=== PATIENT | female | born 1965 | race Caucasian/White ===

== ENCOUNTER 2021-02-12 10:55 | Observation (INO) | payer MEDICARE ==
--- NOTE | 2021-02-12 11:08 | ERPHSYRPT ---
- History of Present Illness Time Seen by Provider: 02/12/21 11:03 Source: patient, family Exam Limitations: no limitations Physician History: This is a 55-year-old white female who has been smoking cigarettes for 40 years and presents with shortness of breath that has been worsening over the last 2 weeks. Today was at its worst. Patient states that she stopped smoking for 5 days. Patient does have a touch of asthma per her report. Patient has had wheezing and a mild cough. She denies chest pain. She does not use home oxygen therapy Severity of Dyspnea-Max: moderate Severity of Dyspnea-Current: moderate Possible Cause: occasional episodes Modifying Factors: Improves With: activity, coughing Associated Symptoms: cough, wheezing Allergies/Adverse Reactions: No Known Drug Allergies Allergy (Unverified 02/12/21 11:09) Home Medications: Albuterol Sulfate [Proair Hfa] 1 ea TID 02/12/21 [History] lisinopriL [Lisinopril] 20 mg DAILY 02/12/21 [History] Travel Risk - International Travel Have you traveled outside of the country in past 3 weeks: No - Coronavirus Screening Are you exhibiting any of the following symptoms?: No Close contact with a COVID-19 positive Pt in past 14-21 Days: No - Review of Systems Constitutional: No Symptoms Eyes: No Symptoms Ears, Nose, & Throat: No Symptoms Respiratory: No Symptoms Cardiac: No Symptoms Abdominal/Gastrointestinal: No Symptoms Genitourinary Symptoms: No Symptoms Musculoskeletal: No Symptoms Skin: No Symptoms Neurological: No Symptoms Psychological: No Symptoms Endocrine: No Symptoms Hematologic/Lymphatic: No Symptoms Immunological/Allergic: No Symptoms All Other Systems: Reviewed and Negative - Past Medical History Pertinent Past Medical History: Yes - Past Surgical History Past Surgical History: Yes - Nursing Vital Signs Nursing Vital Signs: Initial Vital Signs Temperature 97.2 F 02/12/21 10:57 Pulse Rate 123 H 02/12/21 10:57 Respiratory Rate 26 H 02/12/21 10:57 Blood Pressure 147/92 02/12/21 10:57 O2 Sat by Pulse Oximetry 89 L 02/12/21 10:57 Pain Scale Pain Intensity 3 - Physical Exam General Appearance: moderate distress, alert, anxiety, thin Eye Exam: PERRL/EOMI, eyes nml inspection Ears, Nose, Throat Exam: hearing grossly normal, normal ENT inspection, normal pharynx Neck Exam: normal inspection, non-tender, supple, full range of motion Respiratory Exam: respiratory distress, airway intact, wheezing, No chest tenderness Cardiovascular/Chest Exam: tachycardia Abdominal/Gastrointestinal Exam: soft, normal bowel sounds, No tenderness Rectal Exam: not done Extremity Exam: non-tender, normal range of motion, normal inspection, normal capillary refill, no calf tenderness, no pedal edema, pelvis stable Neurologic Exam: alert, oriented x 3, cooperative, fuel manager II-XII nml as tested, normal mood/affect, nml cerebellar function, nml station & gait, sensation nml Skin Exam: normal color, warm, dry Lymphatic Exam: No adenopathy SpO2 Interpretation: borderline oxygenation O2 Delivery: Room Air - Course Nursing assessment & vital signs reviewed: Yes EKG Interpreted by Me: RATE (120), Sinus Tach, NORMAL AXIS, LAFB, NORMAL INTERVALS, NORMAL QRS, NORMAL ST-T, Other (No acute ischemic changes on today's EKG. No comparison EKG available) Ordered Tests: Active Orders 24 hr Category Date Time Status EKG-ER Only STAT Care 02/12/21 11:11 Active IV Insertion STAT Care 02/12/21 11:11 Active Pulse Oximetry (ED) STAT Care 02/12/21 11:11 Active CHEST 1 VIEW (PORTABLE) Stat Exams 02/12/21 11:12 Taken CHEST WITH CONTRAST [CT] Stat Exams 02/12/21 12:17 Taken ARTERIAL BLOOD GASES Stat Lab 02/12/21 11:11 Completed BLOOD CULTURE Stat Lab 02/12/21 11:30 Received CBC W DIFF Stat Lab 02/12/21 11:20 Completed CMP Stat Lab 02/12/21 11:20 Completed D-DIMER QUANTITATIVE Stat Lab 02/12/21 11:20 Completed Lactic Acid Stat Lab 02/12/21 11:11 Completed NT PRO BNP Stat Lab 02/12/21 11:20 Completed PROTIME WITH INR Stat Lab 02/12/21 11:20 Completed TROPONIN Q3H Lab 02/12/21 11:20 Completed TROPONIN Q3H Lab 02/12/21 14:15 Completed TROPONIN Q3H Lab 02/12/21 17:15 Ordered TROPONIN Q3H Lab 02/12/21 20:15 Ordered TROPONIN Q3H Lab 02/12/21 23:15 Ordered Transfer Order Routine Transfer 02/12/21 Ordered Medication Summary Generic Name Dose Route Start Last Admin Trade Name Freq PRN Reason Stop Dose Admin Ceftriaxone Sodium/Dextrose 1 g in 50 mls @ 100 mls/hr 02/12/21 15:14 02/12/21 15:24 Rocephin 1 Gm-D5w 50 Ml Bag IV 02/12/21 15:43 100 mls/hr STAT STA 100 mls/hr Administration Discontinued Medications Generic Name Dose Route Start Last Admin Trade Name Gustavo PRN Reason Stop Dose Admin Albuterol/Ipratropium Confirm 02/12/21 11:22 Duoneb 0.5-3 Mg/3 Ml Neb Administered 02/12/21 11:23 Dose 3 ml IH .STK-MED ONE Lactated Ringer's 500 mls @ 500 mls/hr 02/12/21 12:17 02/12/21 14:29 Lactated Ringers IV 02/12/21 13:16 Infused .Q1H ONE Infusion Lactated Ringer's Confirm 02/12/21 13:07 Lactated Ringers Administered 02/12/21 13:08 Dose 1,000 mls @ ud IV .STK-MED ONE Ceftriaxone Sodium/Dextrose Confirm 02/12/21 15:20 Rocephin 1 Gm-D5w 50 Ml Bag Administered 02/12/21 15:21 Dose 1 g in 50 mls @ ud IV .STK-MED ONE Methylprednisolone Sodium Succinate 125 mg 02/12/21 11:11 02/12/21 11:17 Solu-Medrol 125 Mg IV 02/12/21 11:12 125 mg STAT ONE Administration Methylprednisolone Sodium Succinate Confirm 02/12/21 11:16 Solu-Medrol 125 Mg Administered 02/12/21 11:17 Dose 125 mg .ROUTE .STK-MED ONE Lab/Rad Data: Laboratory Result Diagrams 02/12/21 11:20 02/12/21 11:20 Laboratory Results 02/12/21 02/12/21 02/12/21 Range/Units 14:15 12:38 11:20 WBC (4.0-10.5) K/mm3 RBC (4.1-5.4) M/mm3 Hgb (12.0-16.0) gm/dl Hct (35-47) % MCV (78-100) fl MCH (26-32) pg MCHC (32-36) g/dl RDW (11.5-14.0) % Plt Count (150-450) K/mm3 MPV (7.5-11.0) fl Gran % (36.0-66.0) % Eos # (Auto) (0-0.5) Absolute Lymphs (auto) (1.0-4.6) Absolute Monos (auto) (0.0-1.3) Lymphocytes % (24.0-44.0) % Monocytes % (0.0-12.0) % Eosinophils % (0.00-5.0) % Basophils % (0.0-0.4) % Absolute Granulocytes (1.4-6.9) Basophils # (0-0.4) PT (9.4-12.5) SECONDS INR (0.8-3.0) D-Dimer (215-500) ng/mL Puncture Site pCO2 (35-45) mmHg pO2 (75-100) mmHg Base Excess (-2.0-2.0) O2 Saturation (94-100) g/dF ABG pH (7.35-7.45) ABG HCO3 (22-28) ABG O2 Sat (Measured) (95-100) % Gustavo Test A-a Gradient a/A Ratio Hemoglobin Carboxyhemoglobin (0.0-6.9) % THgb Methemoglobin (1.4-1.5) % Potassium (3.5-5.1) Temperature C POC O2 Flow Rate % Sodium (137-145) mmol/L Chloride (98-107) mmol/L Carbon Dioxide (22-30) mmol/L Anion Gap (5-15) MEQ/L BUN (7-17) mg/dL Creatinine (0.52-1.04) mg/dL Estimated GFR ML/MIN Glucose (74-106) mg/dL Lactic Acid (0.4-2.0) Calcium (8.4-10.2) mg/dL Total Bilirubin (0.2-1.3) mg/dL AST (14-36) U/L ALT (0-35) U/L Alkaline Phosphatase (38-126) U/L Troponin I < 0.012 0.014 (0.000-0.034) ng/mL NT-Pro-B Natriuret Pep (0-900) pg/mL Serum Total Protein (6.3-8.2) g/dL Albumin (3.5-5.0) g/dL SARS-CoV-2 (PCR) NEGATIVE (NEGATIVE) 02/12/21 02/12/21 02/12/21 Range/Units 11:20 11:20 11:20 WBC 12.2 H (4.0-10.5) K/mm3 RBC 5.80 H (4.1-5.4) M/mm3 Hgb 18.7 H (12.0-16.0) gm/dl Hct 56.4 H (35-47) % MCV 97.2 (78-100) fl MCH 32.2 H (26-32) pg MCHC 33.2 (32-36) g/dl RDW 12.8 (11.5-14.0) % Plt Count 298 (150-450) K/mm3 MPV 10.9 (7.5-11.0) fl Gran % 72.6 H (36.0-66.0) % Eos # (Auto) 0.05 (0-0.5) Absolute Lymphs (auto) 1.99 (1.0-4.6) Absolute Monos (auto) 1.26 (0.0-1.3) Lymphocytes % 16.4 L (24.0-44.0) % Monocytes % 10.4 (0.0-12.0) % Eosinophils % 0.4 (0.00-5.0) % Basophils % 0.2 (0.0-0.4) % Absolute Granulocytes 8.85 H (1.4-6.9) Basophils # 0.02 (0-0.4) PT 12.5 (9.4-12.5) SECONDS INR 1.06 (0.8-3.0) D-Dimer 658 H* (215-500) ng/mL Puncture Site pCO2 (35-45) mmHg pO2 (75-100) mmHg Base Excess (-2.0-2.0) O2 Saturation (94-100) g/dF ABG pH (7.35-7.45) ABG HCO3 (22-28) ABG O2 Sat (Measured) (95-100) % Gustavo Test A-a Gradient a/A Ratio Hemoglobin Carboxyhemoglobin (0.0-6.9) % THgb Methemoglobin (1.4-1.5) % Potassium 3.3 L (3.5-5.1) Temperature C POC O2 Flow Rate % Sodium 140 (137-145) mmol/L Chloride 97 L (98-107) mmol/L Carbon Dioxide 31 H (22-30) mmol/L Anion Gap 15.3 H (5-15) MEQ/L BUN 15 (7-17) mg/dL Creatinine 0.93 (0.52-1.04) mg/dL Estimated GFR > 60.0 ML/MIN Glucose 141 H (74-106) mg/dL Lactic Acid (0.4-2.0) Calcium 9.8 (8.4-10.2) mg/dL Total Bilirubin 0.50 (0.2-1.3) mg/dL AST 24 (14-36) U/L ALT 15 (0-35) U/L Alkaline Phosphatase 81 (38-126) U/L Troponin I (0.000-0.034) ng/mL NT-Pro-B Natriuret Pep 919 H (0-900) pg/mL Serum Total Protein 7.6 (6.3-8.2) g/dL Albumin 4.4 (3.5-5.0) g/dL SARS-CoV-2 (PCR) (NEGATIVE) 02/12/21 Range/Units 11:11 WBC (4.0-10.5) K/mm3 RBC (4.1-5.4) M/mm3 Hgb (12.0-16.0) gm/dl Hct (35-47) % MCV (78-100) fl MCH (26-32) pg MCHC (32-36) g/dl RDW (11.5-14.0) % Plt Count (150-450) K/mm3 MPV (7.5-11.0) fl Gran % (36.0-66.0) % Eos # (Auto) (0-0.5) Absolute Lymphs (auto) (1.0-4.6) Absolute Monos (auto) (0.0-1.3) Lymphocytes % (24.0-44.0) % Monocytes % (0.0-12.0) % Eosinophils % (0.00-5.0) % Basophils % (0.0-0.4) % Absolute Granulocytes (1.4-6.9) Basophils # (0-0.4) PT (9.4-12.5) SECONDS INR (0.8-3.0) D-Dimer (215-500) ng/mL Puncture Site LEFT RADIAL pCO2 38 (35-45) mmHg pO2 66 L (75-100) mmHg Base Excess 6.1 H (-2.0-2.0) O2 Saturation 86.3 L (94-100) g/dF ABG pH 7.50 H (7.35-7.45) ABG HCO3 29.6 H* (22-28) ABG O2 Sat (Measured) 95.7 (95-100) % Gustavo Test YES A-a Gradient 86 a/A Ratio 0.43 Hemoglobin 18.0 Carboxyhemoglobin 8.8 H* (0.0-6.9) % THgb Methemoglobin 1.0 L (1.4-1.5) % Potassium 3.6 (3.5-5.1) Temperature 37.0 C POC O2 Flow Rate 28 % Sodium (137-145) mmol/L Chloride (98-107) mmol/L Carbon Dioxide (22-30) mmol/L Anion Gap (5-15) MEQ/L BUN (7-17) mg/dL Creatinine (0.52-1.04) mg/dL Estimated GFR ML/MIN Glucose (74-106) mg/dL Lactic Acid 1.6 (0.4-2.0) Calcium (8.4-10.2) mg/dL Total Bilirubin (0.2-1.3) mg/dL AST (14-36) U/L ALT (0-35) U/L Alkaline Phosphatase (38-126) U/L Troponin I (0.000-0.034) ng/mL NT-Pro-B Natriuret Pep (0-900) pg/mL Serum Total Protein (6.3-8.2) g/dL Albumin (3.5-5.0) g/dL SARS-CoV-2 (PCR) (NEGATIVE) - Progress Progress: improved Air Movement: good Progress Note: 02/12/21 12:00 Chest x-ray shows no acute infiltrate. There are chronic changes present. 02/12/21 15:16 Medical decision making: This patient has COPD exacerbation. She does have a mild leukocytosis. She is afebrile. I reviewed the patient history, CT findings of no evidence of pulmonary infiltrate or pulmonary embolus with Dr. Lenz. I also reviewed her lab reports. We will place her in observation and provide Rocephin and azithromycin intravenous antibiotics as well as methylprednisolone intravenously and respiratory therapy evaluation and management. Blood Culture(s) Obtained: Yes Discussed with .: Ifrah Counseled pt/family regarding: lab results, diagnosis, rad results - Departure Departure Disposition: Observation Clinical Impression: COPD exacerbation Condition: Stable Critical Care Time: No Referrals: BITA MCKINNEY MD [Primary Care Provider] - Instructions: Chronic Obstructive Pulmonary Disease
[2021-02-12] MEDS ORDERED: solu-MEDROL 125 MG IV ONE (11:11)
[2021-02-12] MEDS ORDERED: solu-MEDROL 125 MG ONE (11:16)
[2021-02-12] MEDS ORDERED: DUONEB 0.5-3 MG/3 ml Neb IH ONE ×2 (11:22→17:49)
[2021-02-12] MEDS: DUONEB 0.5-3 MG/3 ml Neb IH SCH ×3 (11:25→22:32)
[2021-02-12 11:46] LABS: Absolute Neutrophil Ct (ANC) 8.85 (1.4-6.9); BASOPHIL % 0.2 % (0.0-0.4); Basophil (Absolute #) 0.02 (0-0.4); Eosinophil % 0.4 % (0.00-5.0); Eosinophil (Absolute #) 0.05 (0-0.5); Hematocrit 56.4 % (35-47); Hemoglobin 18.7 gm/dl (12.0-16.0); Lymphocyte (Absolute #) 1.99 (1.0-4.6); Lymphocytes % 16.4 % (24.0-44.0); Mean Cell Volume 97.2 fl (78-100); Mean Corpuscular Hemoglobin 32.2 pg (26-32); Mean Corpuscular Hgb Concent. 33.2 g/dl (32-36); Mean Platelet Volume 10.9 fl (7.5-11.0); Monocyte (Absolute #) 1.26 (0.0-1.3); Monocytes % 10.4 % (0.0-12.0); Neutrophil % 72.6 % (36.0-66.0); Platelet Count 298 K/mm3 (150-450); Red Cell Distribution Width 12.8 % (11.5-14.0); White Blood Count 12.2 K/mm3 (4.0-10.5)
[2021-02-12 11:54] LABS: INR 1.06 (0.8-3.0); PROTIME 12.5 SECONDS (9.4-12.5)
[2021-02-12 12:08] LABS: ALBUMIN 4.4 g/dL (3.5-5.0); ALKALINE PHOSPHATASE 81 U/L (38-126); ANION GAP 15.3 MEQ/L (5-15); BLOOD UREA NITROGEN 15 mg/dL (7-17); CHLORIDE 97 mmol/L (98-107); Calcium 9.8 mg/dL (8.4-10.2); Carbon Dioxide 31 mmol/L (22-30); Creatinine 1 0.93 mg/dL (0.52-1.04); EST GLOMERULAR FILTRATION RATE > 60.0 ML/MIN; Glucose 141 mg/dL (74-106); NT PRO BNP 919 pg/mL (0-900); Potassium 3.3 mmol/L (3.5-5.1); SGOT/AST 24 U/L (14-36); SGPT/ALT 15 U/L (0-35); SODIUM 140 mmol/L (137-145); Total Protein 7.6 g/dL (6.3-8.2)
[2021-02-12] MEDS ORDERED: Lactated Ringers 500 ML IV ONE (12:17)
[2021-02-12 12:47] LABS: A-aADO2 86; ABG POTASSIUM 3.6 (3.5-5.1); ARTERIAL BLD GAS O2 SATURATION 95.7 % (95-100); ARTERIAL BLOOD GAS BASE EXCESS 6.1 (-2.0-2.0); ARTERIAL BLOOD GAS FIO2 28 %; ARTERIAL BLOOD GAS PCO2 38 mmHg (35-45); ARTERIAL BLOOD GAS PO2 66 mmHg (75-100); HCO3- 29.6 (22-28); HGB O2 SAT 86.3 g/dF (94-100); Lactic Acid 1.6 (0.4-2.0)
[2021-02-12 12:48] LABS: CARBOXYHEMOGLOBIN 8.8 % THgb (0.0-6.9)
[2021-02-12 12:49] LABS: ABG SITE LEFT RADIAL; ALLEN TEST OK? YES
[2021-02-12] MEDS ORDERED: Lactated Ringers 1,000 ML IV ONE (13:07)
[2021-02-12] MEDS ORDERED: ROCEPHIN 1 Gm-D5w 50 ml Bag** 1 G/50 ML IVPB IV STA (15:14)
[2021-02-12] MEDS ORDERED: ROCEPHIN 1 Gm-D5w 50 ml Bag** 1 G/50 ML IVPB IV ONE (15:20)
[2021-02-12] MEDS ORDERED: solu-MEDROL 125 MG IV SCH (15:49)
[2021-02-12] MEDS ORDERED: Zofran 4 MG/2 ML VIAL IV PRN (15:49)
[2021-02-12] MEDS ORDERED: Zithromax 500 MG/ 250 ML NaCl Premix 500 MG/250 ML IVPB IV ONE (16:22)
[2021-02-12] MEDS ORDERED: ZITHROMAX IV 500 MG*** 0 MG in Sodium Chloride 0.9% 250 ML 250 ML IV SCH (17:00)
[2021-02-12] MEDS: Zithromax 500 MG/ 250 ML NaCl Premix 500 MG/250 ML IVPB IV SCH (17:18)
[2021-02-12] MEDS ORDERED: xanAX 0.5 MG PO PRN (18:44)
--- NOTE | 2021-02-12 19:52 | XRAY ---
Indication: Short of breath and elevated d-dimer. Multiple contiguous axial images obtained through the chest using 80 cc Isovue 370 contrast and PE protocol. Comparison: None There is good opacification of the pulmonary arteries to include the lobar and segmental branches. No pulmonary embolus. Heart not enlarged. Aorta is normal in course and caliber. No pathologic mediastinal/hilar lymphadenopathy. Lungs demonstrates mild pulmonary emphysema and a few right lung calcified granulomas largest 1.3 cm near the base. Also minimal scattered peripheral fibrosis/scarring. No infiltrate or effusion. Bony thorax intact with mild degenerative changes throughout the spine. Limited upper abdomen demonstrates mild fatty liver. Impression: 1. Negative pulmonary embolus. No acute cardiopulmonary abnormalities. 2. Incidental pulmonary emphysema, fatty liver, and old granulomatous disease. Comment: Preliminary interpretation was made by [facility]. No critical discrepancy.
--- NOTE | 2021-02-12 19:54 | XRAY ---
Indication: Short of breath. Comparison: None Portable chest demonstrates COPD and calcified granulomas largest right base. No focal infiltrate, consolidation, or large effusion. Heart not enlarged. Bony thorax intact with mild degenerative changes. Impression: Nonacute chest with chronic features.
[2021-02-12] MEDS: solu-MEDROL 125 MG IV SCH (20:12)
[2021-02-13 00:44] LABS: Absolute Neutrophil Ct (ANC) 6.11 (1.4-6.9); BASOPHIL % 0.1 % (0.0-0.4); Basophil (Absolute #) 0.01 (0-0.4); Eosinophil (Absolute #) 0 (0-0.5); Hematocrit 45.5 % (35-47); Lymphocyte (Absolute #) 0.51 (1.0-4.6); Lymphocytes % 7.6 % (24.0-44.0); Mean Cell Volume 98.3 fl (78-100); Mean Corpuscular Hemoglobin 32.4 pg (26-32); Mean Platelet Volume 10.3 fl (7.5-11.0); Monocyte (Absolute #) 0.11 (0.0-1.3); Monocytes % 1.6 % (0.0-12.0); Neutrophil % 90.7 % (36.0-66.0); Platelet Count 204 K/mm3 (150-450); Red Blood Count 4.63 M/mm3 (4.1-5.4); Red Cell Distribution Width 12.5 % (11.5-14.0); White Blood Count 6.7 K/mm3 (4.0-10.5)
[2021-02-13 01:00] LABS: ALBUMIN 3.3 g/dL (3.5-5.0); ALKALINE PHOSPHATASE 70 U/L (38-126); ANION GAP 12.1 MEQ/L (5-15); BLOOD UREA NITROGEN 20 mg/dL (7-17); CHLORIDE 100 mmol/L (98-107); Calcium 8.9 mg/dL (8.4-10.2); Carbon Dioxide 30 mmol/L (22-30); Creatinine 1 0.73 mg/dL (0.52-1.04); EST GLOMERULAR FILTRATION RATE > 60.0 ML/MIN; Glucose 145 mg/dL (74-106); NT PRO BNP 1060 pg/mL (0-900); Potassium 3.7 mmol/L (3.5-5.1); SGOT/AST 20 U/L (14-36); SGPT/ALT 13 U/L (0-35); SODIUM 138 mmol/L (137-145); Total Protein 5.4 g/dL (6.3-8.2)
[2021-02-13] MEDS: DUONEB 0.5-3 MG/3 ml Neb IH SCH ×6 (02:37→22:58)
[2021-02-13] MEDS: solu-MEDROL 125 MG IV SCH ×3 (04:02→21:15)
[2021-02-13] MEDS ORDERED: DUONEB 0.5-3 MG/3 ml Neb IH ONE (06:43)
[2021-02-13] MEDS: Nicoderm CQ 21 MG TOP SCH (07:24)
[2021-02-13] MEDS: xanAX 0.5 MG PO PRN ×4 (09:51→21:43)
[2021-02-13] MEDS: Zestril 20 MG PO SCH (09:51)
[2021-02-13] MEDS: Zithromax 500 MG/ 250 ML NaCl Premix 500 MG/250 ML IVPB IV SCH (09:51)
[2021-02-13] MEDS: ROCEPHIN 1 Gm-D5w 50 ml Bag** 1 G/50 ML IVPB IV SCH (09:51)
[2021-02-13] MEDS ORDERED: ZITHROMAX IV 500 MG*** 0 MG in Sodium Chloride 0.9% 250 ML 250 ML IV SCH (10:00)
[2021-02-13] MEDS: HYDROCODONE-CHLORPHEN ER SUSP PO PRN ×2 (11:05→23:06)
[2021-02-13] MEDS: Singulair 10 MG PO SCH (11:05)
[2021-02-13] MEDS: ENOXAPARIN SODIUM SQ SCH (11:05)
--- NOTE | 2021-02-13 14:35 | PCM.HP ---
History of Present Illness - Chief Complaint Chief Complaint: exac copd Date: 02/13/21 History of Present Illness: is a 55 year old female seen and examined this am following ER admission for COPD exacerbation. Patient reports that has been sick for the past 2 weeks. She reports that she was having to alter her eating due to the SOB she was experiencing. She reports productive cough and described "yellow jello" colored chunky sputum. She reported a chest flutter or pressure sensation. She reports that the cough and SOB progressively got worse and decided she needed to come to the hospital. Patient reports that can already tell she is doing better. She reports she is on albuterol inhaler at home and denies being diagnosed with COPD or any previous hospital admissions for COPD. She is an everyday smoker but has been trying to cut back. She is wearing a nicotine patch. - Review of Systems Constitutional: Weight Loss, No Fever Eyes: No Symptoms Ears, Nose, & Throat: Other (Dental ) Respiratory: Cough, Short Of Breath, Wheezing Cardiac: No Chest Pain, No Edema Abdominal/Gastrointestinal: Vomiting, Diarrhea, No Abdominal Pain, No Nausea, No Constipation Genitourinary Symptoms: No Symptoms Musculoskeletal: No Symptoms Skin: No Symptoms Neurological: Headache Psychological: Anxiety, Depression, No Alcohol Abuse, No Drug Abuse Immunological/Allergic: Other (Allergies) Medications & Allergies Home Medications: Home Medication List Albuterol Sulfate [Proair Hfa] 1 ea TID 02/12/21 [History Confirmed 02/12/21] lisinopriL [Lisinopril] 20 mg DAILY 02/12/21 [History Confirmed 02/12/21] Allergies/Adverse Reactions: Allergies Allergy/AdvReac Type Severity Reaction Status Date / Time No Known Drug Allergies Allergy Unverified 02/12/21 11:09 - Past Medical History Past Medical History: Yes Respiratory History: COPD Musculoskelatal History: Arthritis, Degenerative Disk Disease, Other Comment: fx right leg- didnt heal well - Female History Hx Last Menstrual Period: post Are you now?: No - Past Surgical History Past Surgical History: Yes GI Surgical History: Appendectomy, Cholecystectomy Musculskeletal Surgical Hx: Orthopedic Surgery Female Surgical History: Hysterectomy Other Surgical History: right leg - Social History Smoking Status: Current every day smoker Exposure to second hand smoke: Yes Alcohol: None Drug Use: marijuana - Physical Exam Vital Signs: Vital Signs - 24 hr Temp Pulse Resp BP Pulse Ox 02/13/21 12:00 98.3 F 111 H 16 171/79 93 L 02/13/21 10:44 97 H 20 92 L 02/13/21 07:35 97.9 F 86 16 142/71 97 02/13/21 06:48 86 22 97 02/13/21 03:48 97.7 F 62 22 131/63 95 02/13/21 02:37 62 22 95 02/13/21 00:00 97.9 F 77 32 H 148/69 93 L 02/12/21 22:32 85 29 H 94 L 02/12/21 20:00 98.2 F 99 H 16 158/84 94 L 02/12/21 19:44 93 L 02/12/21 15:52 78 19 141/81 92 L 02/12/21 15:49 78 20 95 02/12/21 15:10 101 H 20 163/89 94 L Oxygen-Last 24 hours Oxygen Flowrate (L/min)-RT 3 General Appearance: moderate distress, thin Neurologic Exam: alert, oriented x 3, cooperative, depressed mood/affect, No disoriented, No confusion, No agitation Eye Exam: eyes nml inspection, No scleral icterus Ears, Nose, Throat Exam: moist mucous membranes, other (poor dentition) Neck Exam: normal inspection Respiratory Exam: respiratory distress, diminished breath sounds, accessory muscle use, prolonged expirations, wheezing, No normal breath sounds, No lungs clear Cardiovascular Exam: regular rate/rhythm, normal heart sounds, No murmur, No friction rub, No gallop Gastrointestinal/Abdomen Exam: soft, normal bowel sounds, No tenderness, No distention, No mass, No guarding Pelvic Exam: not done Rectal Exam: not done Back Exam: normal inspection Extremity Exam: normal inspection, No pedal edema, No swelling, No tenderness Skin Exam: normal color, warm, dry, No rash Results - Labs Lab/Micro Results: Lab Results-Last 24 Hours 02/12/21 02/12/21 02/12/21 Range/Units 00:41 14:15 17:18 WBC (4.0-10.5) K/mm3 RBC (4.1-5.4) M/mm3 Hgb (12.0-16.0) gm/dl Hct (35-47) % MCV (78-100) fl MCH (26-32) pg MCHC (32-36) g/dl RDW (11.5-14.0) % Plt Count (150-450) K/mm3 MPV (7.5-11.0) fl Gran % (36.0-66.0) % Eos # (Auto) (0-0.5) Absolute Lymphs (auto) (1.0-4.6) Absolute Monos (auto) (0.0-1.3) Lymphocytes % (24.0-44.0) % Monocytes % (0.0-12.0) % Eosinophils % (0.00-5.0) % Basophils % (0.0-0.4) % Absolute Granulocytes (1.4-6.9) Basophils # (0-0.4) Sodium (137-145) mmol/L Potassium (3.5-5.1) mmol/L Chloride (98-107) mmol/L Carbon Dioxide (22-30) mmol/L Anion Gap (5-15) MEQ/L BUN (7-17) mg/dL Creatinine (0.52-1.04) mg/dL Estimated GFR ML/MIN Glucose (74-106) mg/dL Calcium (8.4-10.2) mg/dL Total Bilirubin (0.2-1.3) mg/dL AST (14-36) U/L ALT (0-35) U/L Alkaline Phosphatase (38-126) U/L Troponin I < 0.012 < 0.012 < 0.012 (0.000-0.034) ng/mL NT-Pro-B Natriuret Pep (0-900) pg/mL Serum Total Protein (6.3-8.2) g/dL Albumin (3.5-5.0) g/dL 02/12/21 02/13/21 02/13/21 Range/Units 20:12 00:41 00:41 WBC 6.7 (4.0-10.5) K/mm3 RBC 4.63 (4.1-5.4) M/mm3 Hgb 15.0 (12.0-16.0) gm/dl Hct 45.5 (35-47) % MCV 98.3 (78-100) fl MCH 32.4 H (26-32) pg MCHC 33.0 (32-36) g/dl RDW 12.5 (11.5-14.0) % Plt Count 204 (150-450) K/mm3 MPV 10.3 (7.5-11.0) fl Gran % 90.7 H (36.0-66.0) % Eos # (Auto) 0 (0-0.5) Absolute Lymphs (auto) 0.51 L (1.0-4.6) Absolute Monos (auto) 0.11 (0.0-1.3) Lymphocytes % 7.6 L (24.0-44.0) % Monocytes % 1.6 (0.0-12.0) % Eosinophils % 0.0 (0.00-5.0) % Basophils % 0.1 (0.0-0.4) % Absolute Granulocytes 6.11 (1.4-6.9) Basophils # 0.01 (0-0.4) Sodium 138 (137-145) mmol/L Potassium 3.7 (3.5-5.1) mmol/L Chloride 100 (98-107) mmol/L Carbon Dioxide 30 (22-30) mmol/L Anion Gap 12.1 (5-15) MEQ/L BUN 20 H (7-17) mg/dL Creatinine 0.73 (0.52-1.04) mg/dL Estimated GFR > 60.0 ML/MIN Glucose 145 H (74-106) mg/dL Calcium 8.9 (8.4-10.2) mg/dL Total Bilirubin 0.20 (0.2-1.3) mg/dL AST 20 (14-36) U/L ALT 13 (0-35) U/L Alkaline Phosphatase 70 (38-126) U/L Troponin I < 0.012 (0.000-0.034) ng/mL NT-Pro-B Natriuret Pep 1060 H (0-900) pg/mL Serum Total Protein 5.4 L (6.3-8.2) g/dL Albumin 3.3 L (3.5-5.0) g/dL - Radiology Impressions Radiology Exams & Impressions: Radiology Procedures Category Date Time Status CHEST 1 VIEW (PORTABLE) Stat Exams 02/12/21 11:12 Completed CHEST WITH CONTRAST [CT] Stat Exams 02/12/21 12:17 Completed - Other Procedures and Tests Respiratory Therapy 02/12/21 15:49 Oxygen Nasal Cannula 3 lpm 02/13/21 07:00 Respiratory Therapy Assessment DAILY Assessment/Plan (1) COPD exacerbation Current Visit: Yes Status: Acute Assessment & Plan: Patient denies previous diagnosis but it was noted on imaging. Patient is on steroids duonebs and antibiotics. She is already reporting improvement of symptoms. Patient was started on cough medicine as well. Code(s): J44.1 - CHRONIC OBSTRUCTIVE PULMONARY DISEASE W (ACUTE) EXACERBATION (2) Elevated brain natriuretic peptide (BNP) level Current Visit: Yes Status: Acute Assessment & Plan: Patient does not appear to be fluid overloaded. Will order echo for am. Code(s): R79.89 - OTHER SPECIFIED ABNORMAL FINDINGS OF BLOOD CHEMISTRY (3) Depression Current Visit: Yes Status: Acute Assessment & Plan: Patient is depressed and anxious. She will likely benefit from counseling. She stated that she was on seroquel before but it made her feel weird. Code(s): F32.9 - MAJOR DEPRESSIVE DISORDER, SINGLE EPISODE, UNSPECIFIED (4) Anxiety Current Visit: Yes Status: Acute Assessment & Plan: Patient reports severe anxiety related to her recent illness. She has PRN meds for anxiety. Code(s): F41.9 - ANXIETY DISORDER, UNSPECIFIED
[2021-02-13] MEDS: TYLENOL 325 MG PO PRN (21:14)
[2021-02-14] MEDS: DUONEB 0.5-3 MG/3 ml Neb IH SCH ×6 (02:14→23:07)
[2021-02-14] MEDS: solu-MEDROL 125 MG IV SCH ×3 (05:32→21:34)
[2021-02-14] MEDS: Nicoderm CQ 21 MG TOP SCH (06:51)
[2021-02-14] MEDS: Zestril 20 MG PO SCH (09:52)
[2021-02-14] MEDS: ENOXAPARIN SODIUM SQ SCH (09:52)
[2021-02-14] MEDS: Singulair 10 MG PO SCH (09:52)
[2021-02-14] MEDS: ROCEPHIN 1 Gm-D5w 50 ml Bag** 1 G/50 ML IVPB IV SCH (09:52)
[2021-02-14] MEDS: Zithromax 500 MG/ 250 ML NaCl Premix 500 MG/250 ML IVPB IV SCH (09:52)
--- NOTE | 2021-02-14 10:01 | PCM.NOTE ---
Date and Time: 02/14/21 1001 OBJECTIVE DATA Vital Signs: Vital Signs - 24 hr Temp Pulse Resp BP Pulse Ox 02/14/21 07:06 94 H 23 93 L 02/14/21 06:54 98.0 F 96 H 16 173/99 94 L 02/14/21 03:42 98.1 F 96 H 31 H 137/92 98 02/14/21 02:14 95 H 16 93 L 02/13/21 23:50 98.7 F 99 H 12 144/80 93 L 02/13/21 23:34 96 H 18 91 L 02/13/21 19:58 102 H 18 94 L 02/13/21 19:53 99.2 F 106 H 14 172/96 91 L 02/13/21 16:00 98.2 F 108 H 16 145/78 92 L 02/13/21 14:44 101 H 20 92 L 02/13/21 12:00 98.3 F 111 H 16 171/79 93 L 02/13/21 10:44 97 H 20 92 L Pain Assessment - Last Documented Pain Intensity 0 Pain Scale Used 0-10 Pain Scale Intake and Output: Intake & Output 02/11/21 02/12/21 02/13/21 02/14/21 11:59 11:59 11:59 11:59 Intake Total 1360 1990 Output Total 450 1000 Balance 910 990 Weight 49.895 kg 49 kg Radiology Exams: Radiology Procedures Category Date Time Status CHEST 1 VIEW (PORTABLE) Stat Exams 02/12/21 11:12 Completed CHEST WITH CONTRAST [CT] Stat Exams 02/12/21 12:17 Completed ECHO W/2D AND DOPPLER [US] Routine Exams 02/14/21 Ordered Assessment/Plan (1) COPD exacerbation Current Visit: Yes Status: Acute Code(s): J44.1 - CHRONIC OBSTRUCTIVE PULMONARY DISEASE W (ACUTE) EXACERBATION (2) Elevated brain natriuretic peptide (BNP) level Current Visit: Yes Status: Acute Code(s): R79.89 - OTHER SPECIFIED ABNORMAL FINDINGS OF BLOOD CHEMISTRY (3) Depression Current Visit: Yes Status: Acute Code(s): F32.9 - MAJOR DEPRESSIVE DISORDER, SINGLE EPISODE, UNSPECIFIED (4) Anxiety Current Visit: Yes Status: Acute Code(s): F41.9 - ANXIETY DISORDER, UNSPECIFIED
[2021-02-14] MEDS: TYLENOL 325 MG PO PRN ×2 (18:30→22:50)
[2021-02-14] MEDS: xanAX 0.5 MG PO PRN (21:35)
[2021-02-14] MEDS: HYDROCODONE-CHLORPHEN ER SUSP PO PRN (22:50)
[2021-02-15] MEDS: DUONEB 0.5-3 MG/3 ml Neb IH SCH ×6 (03:00→22:25)
[2021-02-15] MEDS: solu-MEDROL 125 MG IV SCH ×3 (05:51→22:01)
[2021-02-15] MEDS: xanAX 0.5 MG PO PRN ×3 (05:55→22:00)
[2021-02-15] MEDS: Nicoderm CQ 21 MG TOP SCH (06:47)
[2021-02-15] MEDS: ENOXAPARIN SODIUM SQ SCH (09:39)
[2021-02-15] MEDS: Levofloxacin 500 MG Tablet PO SCH (09:39)
[2021-02-15] MEDS: Zestril 20 MG PO SCH (09:39)
[2021-02-15] MEDS: Singulair 10 MG PO SCH (09:39)
[2021-02-15] MEDS: TYLENOL 325 MG PO PRN ×3 (09:39→22:00)
[2021-02-15] MEDS ORDERED: Levofloxacin 250MG Tablet PO SCH (10:00)
--- NOTE | 2021-02-15 16:22 | XRAY ---
Indication: Wheezing. Comparison: February 12, 2021 Portable chest unchanged again demonstrating COPD and right base calcified granuloma. Heart not enlarged. No new/acute cardiopulmonary abnormalities.
[2021-02-15] MEDS: HYDROCODONE-CHLORPHEN ER SUSP PO PRN (19:06)
[2021-02-16] MEDS ORDERED: APRESOLINE 20 MG/ML INJ ONE (01:06)
[2021-02-16] MEDS: DUONEB 0.5-3 MG/3 ml Neb IH SCH ×6 (02:10→22:29)
[2021-02-16] MEDS: xanAX 0.5 MG PO PRN ×4 (03:04→18:21)
--- NOTE | 2021-02-16 03:38 | PCM.NOTE ---
Date and Time: 02/16/21 033 Subjective Assessment: Patient seen and examined today. Patient reports she is feeling better. She reports that her breathing has improved. Her sputum is thinning out. She has good appetite. She reports getting short of breath getting up to shower and has not been able to be without oxygen. Cough has improved. Patient reports her anxiety/depression has improved. She has no other concerns at this time. - Review of Systems Constitutional: Weakness, No Fever Eyes: No Symptoms Ears, Nose, & Throat: Nose Congestion, Other (Poor dentition) Respiratory: Cough, Short Of Breath Cardiac: Chest Pain (has occasional episodes), No Edema Abdominal/Gastrointestinal: No Abdominal Pain, No Nausea, No Vomiting, No Diarrhea, No Constipation Genitourinary Symptoms: No Symptoms Musculoskeletal: Other (hx of R lower leg compartment syndrome and muscle wasting) Skin: No Symptoms Neurological: No Headache Psychological: Anxiety, Depression, No Alcohol Abuse, No Drug Abuse Objective Exam General Appearance: moderate distress, alert, anxiety, thin Neurologic Exam: alert, oriented x 3, cooperative, depressed mood/affect, No disoriented, No confusion Skin Exam: normal color, warm, dry Eye Exam: eyes nml inspection Ears, Nose, Throat Exam: moist mucous membranes, other (poor dentition) Neck Exam: normal inspection Respiratory Exam: diminished breath sounds, accessory muscle use, prolonged expirations, wheezing (mainly left side), No normal breath sounds, No lungs clear, No crackles/rales Cardiovascular Exam: regular rate/rhythm, normal heart sounds, No murmur, No friction rub, No gallop Gastrointestinal/Abdomen Exam: soft, normal bowel sounds, No tenderness, No distention, No mass Extremity Exam: other (R lower extremity with decreased muscle mass), No pedal edema, No swelling Back Exam: normal inspection OBJECTIVE DATA Vital Signs: Vital Signs - 24 hr Temp Pulse Resp BP Pulse Ox 02/16/21 02:10 92 H 16 96 02/15/21 23:12 98.1 F 91 H 20 180/89 95 02/15/21 22:26 94 H 18 96 02/15/21 20:03 98.3 F 94 H 20 179/90 95 02/15/21 18:41 101 H 20 97 02/15/21 18:15 174/94 02/15/21 16:00 98.4 F 108 H 13 190/110 94 L 02/15/21 15:21 90 18 95 02/15/21 11:41 110 H 20 95 02/15/21 10:00 98.1 F 116 H 20 145/80 93 L 02/15/21 07:23 88 18 95 02/15/21 04:30 24 02/15/21 04:00 98.6 F 97 H 30 H 167/93 98 Pain Assessment - Last Documented Pain Intensity 0 Pain Scale Used 0-10 Pain Scale Intake and Output: Intake & Output 02/13/21 02/14/21 02/15/21 02/16/21 11:59 11:59 11:59 11:59 Intake Total 1360 1990 1460 600 Output Total 450 1000 3850 500 Balance 910 990 -2390 100 Weight 49 kg Radiology Exams: Radiology Procedures Category Date Time Status CHEST 1 VIEW (PORTABLE) Routine Exams 02/15/21 15:30 Completed ECHO W/2D AND DOPPLER [US] Routine Exams 02/14/21 17:34 Taken Multi-Disciplinary Progress Notes: Multi-Disciplinary Progress Notes 02/15/21 11:31 Respiratory Note by Gina Mar ROOM AIR AT REST SPO2 88%. PLACED ON N/C 3LPM SPO2 95% AT REST Initialized on 02/15/21 11:31 - END OF NOTE 02/15/21 10:02 Case Management Note by Leonor Leyva PATIENT CONTINUES TO DENY ANY NEW NEEDS AT TIME OF DC. SHE WILL LIKELY NEED HOME OXYGEN SET UP. Initialized on 02/15/21 10:02 - END OF NOTE Assessment/Plan (1) COPD exacerbation Current Visit: Yes Status: Acute Assessment & Plan: Patient is slowly improving. She continues to require oxygen which is not baseline for patient. She is on duonebs PO antibiotics and steroids and cough medication. Repeat cxr obtained and unchanged from previous imaging. She still shows increased work of breathing but this has improved since admission. Patient's cough medication was discontinued due to increase bp. She was started on mucinex Code(s): J44.1 - CHRONIC OBSTRUCTIVE PULMONARY DISEASE W (ACUTE) EXACERBATION (2) Acute hypoxemic respiratory failure Current Visit: Yes Status: Acute Assessment & Plan: Patient continues to require 3L of oxygen. She has increased work of breathing and has been unable to ween down. She will likely have to go home on oxygen. Code(s): J96.01 - ACUTE RESPIRATORY FAILURE WITH HYPOXIA (3) Elevated brain natriuretic peptide (BNP) level Current Visit: Yes Status: Acute Assessment & Plan: Echo ordered. Patient does not appear to be fluid overloaded. Will continue to monitor. Code(s): R79.89 - OTHER SPECIFIED ABNORMAL FINDINGS OF BLOOD CHEMISTRY (4) Depression Current Visit: Yes Status: Acute Assessment & Plan: Patient was not as tearful during visit. She would likely benefit from counseling to help her cope with the loss of her and brothers. Code(s): F32.9 - MAJOR DEPRESSIVE DISORDER, SINGLE EPISODE, UNSPECIFIED (5) Anxiety Current Visit: Yes Status: Acute Assessment & Plan: Patient is requiring prn xanax. 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 Will start on celexa for both anxiety and depression Code(s): F41.9 - ANXIETY DISORDER, UNSPECIFIED (6) Hypertension Current Visit: Yes Status: Acute Assessment & Plan: Patient is normally on 20 mg but has not been well controlled possibly due to cough medication and steroids stress. Unsure if bp was well controlled prior to admission. Will increase dose of bp meds to 40 mg. Code(s): I10 - ESSENTIAL (PRIMARY) HYPERTENSION (7) Smoker Current Visit: Yes Status: Acute Assessment & Plan: Patient is a current everyday smoker. She has done well on the patch and would like to continue on this medication at home Code(s): F17.200 - NICOTINE DEPENDENCE, UNSPECIFIED, UNCOMPLICATED
[2021-02-16 04:53] LABS: Hematocrit 46.8 % (35-47); Mean Cell Volume 99.8 fl (78-100); Mean Corpuscular Hgb Concent. 32.1 g/dl (32-36); Mean Platelet Volume 10.2 fl (7.5-11.0); Platelet Count 193 K/mm3 (150-450); Red Blood Count 4.69 M/mm3 (4.1-5.4); Red Cell Distribution Width 12.4 % (11.5-14.0); White Blood Count 6.1 K/mm3 (4.0-10.5)
[2021-02-16 05:06] LABS: ALBUMIN 3.5 g/dL (3.5-5.0); ALKALINE PHOSPHATASE 59 U/L (38-126); BLOOD UREA NITROGEN 21 mg/dL (7-17); CHLORIDE 97 mmol/L (98-107); Calcium 8.7 mg/dL (8.4-10.2); Carbon Dioxide 37 mmol/L (22-30); Creatinine 1 0.85 mg/dL (0.52-1.04); EST GLOMERULAR FILTRATION RATE > 60.0 ML/MIN; Glucose 179 mg/dL (74-106); Potassium 3.8 mmol/L (3.5-5.1); SGOT/AST 40 U/L (14-36); SGPT/ALT 47 U/L (0-35); SODIUM 138 mmol/L (137-145); Total Protein 6.1 g/dL (6.3-8.2)
[2021-02-16] MEDS ORDERED: APRESOLINE 20 MG/ML INJ IV PRN (05:29)
[2021-02-16] MEDS: solu-MEDROL 125 MG IV SCH ×2 (06:09→21:06)
[2021-02-16] MEDS: TYLENOL 325 MG PO PRN (06:10)
[2021-02-16 06:35] LABS: BAND 3 % (0.0-2.0); Lymphocytes 4 % (24-44); Monocyte 2 % (0.0-12.0); Neutrophils 91 % (36.0-66.0); Platelet Estimate NORMAL (NORMAL); Total Cells Counted 100
[2021-02-16] MEDS: Nicoderm CQ 21 MG TOP SCH (08:58)
[2021-02-16] MEDS: Levofloxacin 500 MG Tablet PO SCH (08:59)
[2021-02-16] MEDS: ceLEXa 20 MG PO SCH (08:59)
[2021-02-16] MEDS: Zestril 20 MG PO SCH (08:59)
[2021-02-16] MEDS: Mucinex 600MG ER Tabs PO SCH ×2 (08:59→21:05)
[2021-02-16] MEDS: Singulair 10 MG PO SCH (09:00)
[2021-02-16] MEDS: ENOXAPARIN SODIUM SQ SCH (09:00)
[2021-02-16] MEDS ORDERED: Apresoline 25 MG TABLET PO PRN (12:32)
[2021-02-16] MEDS: Toprol-Xl 25MG Tablets PO SCH (12:54)
[2021-02-17] MEDS: DUONEB 0.5-3 MG/3 ml Neb IH SCH ×3 (02:40→10:37)
[2021-02-17] MEDS: xanAX 0.5 MG PO PRN ×3 (03:18→12:59)
[2021-02-17] MEDS ORDERED: Apresoline 25 MG TABLET PO PRN (07:37)
[2021-02-17] MEDS ORDERED: TUCKS TP PRN (09:10)
[2021-02-17] MEDS: Nicoderm CQ 21 MG TOP SCH (09:11)
[2021-02-17] MEDS: solu-MEDROL 125 MG IV SCH (09:12)
[2021-02-17] MEDS: Zestril 20 MG PO SCH (09:12)
[2021-02-17] MEDS: Levofloxacin 500 MG Tablet PO SCH (09:12)
[2021-02-17] MEDS: Singulair 10 MG PO SCH (09:12)
[2021-02-17] MEDS: Toprol-Xl 25MG Tablets PO SCH (09:12)
[2021-02-17] MEDS: ceLEXa 20 MG PO SCH (09:12)
[2021-02-17] MEDS: Mucinex 600MG ER Tabs PO SCH (09:12)
[2021-02-17] MEDS: ENOXAPARIN SODIUM SQ SCH (09:13)
--- NOTE | 2021-02-17 11:16 | ECHO ---
DATE OF PROCEDURE: 02/16/2021 CLINICAL INFORMATION: Dyspnea. It should be noted that there are 49 images making me think the study has not been properly transmitted. The M-mode 2D, and Doppler echocardiogram including color flow Doppler shows the left ventricle is normal in size at 4.6 cm. There is no thrombus present. The septal wall thickness is normal at 1.0 cm. The left ventricular posterior wall thickness is normal at 1.1 cm. The contractility of the left ventricle is at the lower limits of normal. The ejection fraction is estimated to be 50 and 55%. The right ventricle is normal. The left atrium is normal in size at 3.1 cm. The interatrial septum is not well visualized. The right atrium is grossly normal. The aortic valve opens well. There is no aortic regurgitation. There is mitral valve leaflet thickening. There is mild tricuspid regurgitation. The right ventricular systolic pressure is elevated at 40 mm of Mercury. The pulmonic valve is not well visualized. The aortic root is normal at 2.7 cm. There is no pericardial effusion present. IMPRESSION: 1) LOW NORMAL LEFT VENTRICULAR SYSTOLIC FUNCTION. 2) MILD TRICUSPID REGURGITATION. 3) MILD TO MODERATE PULMONARY HYPERTENSION.
[2021-02-17 12:23] VITALS: BP 185/99; PULSE 89; O2SAT 94
--- NOTE | 2021-02-17 17:42 | PCM.DS ---
Discharge Summary Date of Admission: 02/12/21 15:40 Admitting Physician: HARI PINA MD Primary Care Provider: BITA MCKINNEY Allergies Allergies No Known Drug Allergies Allergy (Unverified 02/12/21 11:09) Hospital Summary - Hospital Course Hospital Course: Chief Complaint Diagnosis exac copd Admission Date Date 02/13/21 Allergies Allergy/AdvReac Type Severity Reaction Status Date / Time No Known Drug Allergies Allergy Unverified 02/12/21 11:09 Vital Signs (Last 24 hours) Temp Pulse Resp BP Pulse Ox 02/17/21 11:41 97.7 F 89 16 185/99 94 L 02/17/21 10:39 96 H 20 97 02/17/21 07:31 97.7 F 65 16 173/92 99 02/17/21 06:52 65 20 97 02/17/21 03:56 97.9 F 79 20 185/84 95 02/17/21 02:41 92 H 18 95 02/16/21 23:50 98.1 F 94 H 16 177/81 97 02/16/21 22:32 94 H 16 96 02/16/21 19:36 98.0 F 93 H 21 175/92 95 02/16/21 18:33 85 20 97 Home Medications Medication Instructions Recorded Confirmed Last Taken Type Albuterol Sulfate [Proair Hfa] 1 ea TID 02/12/21 02/12/21 02/12/21 History Albuterol/Ipratropium 3ml Neb* 3 ml IH Q4HRT 30 Days ampul.neb 02/17/21 Unknown Rx [DUONEB 0.5-3 MG/3 ml Neb] Azithromycin 1 gm PO UD #1 packet 02/17/21 Unknown Rx Citalopram Hydrobromide 20 mg* 10 mg PO DAILY 30 Days tablet 02/17/21 Unknown Rx [ceLEXa 20 MG] Lisinopril 20 mg [Zestril 20 40 mg PO DAILY 30 Days tablet 02/17/21 Unknown Rx MG] Methylprednisolone Packet 4 mg PO UD #30 packet 02/17/21 Unknown Rx [Medrol Dosepack] Metoprolol Succinate 25 mg Xl* 25 mg PO DAILY 30 Days tab 02/17/21 Unknown Rx [Toprol-Xl 25MG Tablets] Montelukast Sodium 10 mg 10 mg PO DAILY 30 Days tablet 02/17/21 Unknown Rx [Singulair 10 MG] Nicotine 21 mg [Nicoderm CQ 21 21 mg TOP Q24H 7 Days patch 02/17/21 Unknown Rx MG] Current Medications Discontinued Medications Generic Name Dose Route Start Last Admin Trade Name Freq PRN Reason Stop Dose Admin Acetaminophen 650 mg 02/12/21 15:49 02/16/21 06:10 Tylenol 325 Mg PO 03/14/21 15:48 650 mg Q4H PRN PRN Administration PAIN, FEVER, HEADACHE Albuterol/Ipratropium Confirm 02/12/21 11:22 Duoneb 0.5-3 Mg/3 Ml Neb Administered 02/12/21 11:23 Dose 3 ml IH .STK-MED ONE Albuterol/Ipratropium Confirm 02/12/21 17:49 Duoneb 0.5-3 Mg/3 Ml Neb Administered 02/12/21 17:50 Dose 3 ml IH .STK-MED ONE Albuterol/Ipratropium 3 ml 02/12/21 19:00 02/17/21 10:37 Duoneb 0.5-3 Mg/3 Ml Neb IH 03/14/21 18:59 3 ml Q4HRT GIBRAN Administration Albuterol/Ipratropium Confirm 02/13/21 06:43 Duoneb 0.5-3 Mg/3 Ml Neb Administered 02/13/21 06:44 Dose 3 ml IH .STK-MED ONE Alprazolam 0.5 mg 02/12/21 18:44 02/12/21 21:42 Xanax 0.5 Mg PO 03/14/21 18:43 0.5 mg Q4H PRN Administration ANXIETY Alprazolam 0.5 mg 02/13/21 06:47 02/17/21 12:59 Xanax 0.5 Mg PO 03/15/21 06:46 0.5 mg Q4H PRN PRN Administration ANXIETY Chlorphenir/Hydrocodone Polistirex 5 ml 02/13/21 10:00 02/15/21 19:06 Hydrocodone-Chlorphen Er Susp PO 03/15/21 09:59 5 ml [id number] PRN Administration COUGH Citalopram Hydrobromide 10 mg 02/16/21 10:00 02/17/21 09:12 Celexa 20 Mg PO 03/18/21 09:59 10 mg DAILY GIBRAN Administration Enoxaparin Sodium 30 mg 02/13/21 10:00 02/17/21 09:13 Enoxaparin Sodium SQ 03/15/21 09:59 30 mg DAILY GIBRAN Administration Guaifenesin 1,200 mg 02/16/21 10:00 02/17/21 09:12 Mucinex 600mg Er Tabs PO 03/18/21 09:59 1,200 mg BID GIBRAN Administration Hydralazine HCl Confirm 02/16/21 01:06 Apresoline 20 Mg/Ml Inj Administered 02/16/21 01:07 Dose 20 mg .ROUTE .STK-MED ONE Hydralazine HCl 10 mg 02/16/21 05:29 Apresoline 20 Mg/Ml Inj IV 03/18/21 05:28 Q4H PRN HYPERTENSION Hydralazine HCl 25 mg 02/16/21 12:32 02/16/21 16:22 Apresoline 25 Mg Tablet PO 03/18/21 12:44 25 mg Q6H PRN Administration HYPERTENSION Hydralazine HCl 25 mg 02/17/21 07:37 Apresoline 25 Mg Tablet PO 03/19/21 07:36 Q6H PRN PRN HYPERTENSION Lactated Ringer's 500 mls @ 500 mls/hr 02/12/21 12:17 02/12/21 14:29 Lactated Ringers IV 02/12/21 13:16 Infused .Q1H ONE Infusion Lactated Ringer's Confirm 02/12/21 13:07 Lactated Ringers Administered 02/12/21 13:08 Dose 1,000 mls @ ud IV .STK-MED ONE Ceftriaxone Sodium/Dextrose 1 g in 50 mls @ 100 mls/hr 02/12/21 15:14 15:24 Rocephin 1 Gm-D5w 50 Ml Bag IV 02/12/21 15:43 100 mls/hr STAT STA 100 mls/hr Administration Ceftriaxone Sodium/Dextrose Confirm 02/12/21 15:20 Rocephin 1 Gm-D5w 50 Ml Bag Administered 02/12/21 15:21 Dose 1 g in 50 mls @ ud IV .STK-MED ONE Ceftriaxone Sodium/Dextrose 1 g in 50 mls @ 100 mls/hr 02/13/21 10:00 02/14/21 09:52 Rocephin 1 Gm-D5w 50 Ml Bag IV 02/16/21 09:59 100 mls/hr Q24H10 GIBRAN Administration Azithromycin / Sodium Chloride 250 mls @ 250 mls/hr 02/13/21 10:00 IV 03/15/21 09:59 Q24H10 GIBRAN Azithromycin / Sodium Chloride 250 mls @ 250 mls/hr 02/12/21 17:00 IV 03/14/21 16:59 Q24H10 GIBRAN Azithromycin Confirm 02/12/21 16:22 Zithromax 500 Mg/ 250 Ml Nacl Premix Administered 02/12/21 16:23 Dose 500 mg in 250 mls @ ud IV .STK-MED ONE Azithromycin 500 mg in 250 mls @ 250 mls/hr 02/12/21 18:00 02/14/21 09:52 Zithromax 500 Mg/ 250 Ml Nacl Premix IV 03/14/21 17:59 250 mls/hr Q24H10 GIBRAN Administration Levofloxacin 500 mg 02/15/21 10:00 02/17/21 09:12 Levofloxacin 500 Mg Tablet PO 03/17/21 09:59 500 mg DAILY GIBRAN Administration Lisinopril 20 mg 02/13/21 10:00 02/15/21 09:39 Zestril 20 Mg PO 03/15/21 09:59 20 mg DAILY GIBRAN Administration Lisinopril 40 mg 02/16/21 10:00 02/17/21 09:12 Zestril 20 Mg PO 03/18/21 09:59 40 mg DAILY GIBRAN Administration Methylprednisolone Sodium Succinate 125 mg 02/12/21 11:11 02/12/21 11:17 Solu-Medrol 125 Mg IV 02/12/21 11:12 125 mg STAT ONE Administration Methylprednisolone Sodium Succinate Confirm 02/12/21 11:16 Solu-Medrol 125 Mg Administered 02/12/21 11:17 Dose 125 mg .ROUTE .STK-MED ONE Methylprednisolone Sodium Succinate 80 mg 02/12/21 15:49 02/12/21 16:19 Solu-Medrol 125 Mg IV 03/14/21 15:48 Not Given Q8H GIBRAN Methylprednisolone Sodium Succinate 80 mg 02/12/21 20:00 02/13/21 04:02 Solu-Medrol 125 Mg IV 03/14/21 19:59 80 mg Q8H GIBRAN Administration Methylprednisolone Sodium Succinate 80 mg 02/13/21 14:00 02/16/21 06:09 Solu-Medrol 125 Mg IV 03/15/21 13:59 80 mg Q8HT GIBRAN Administration Methylprednisolone Sodium Succinate 80 mg 02/16/21 22:00 02/17/21 09:12 Solu-Medrol 125 Mg IV 03/18/21 21:59 80 mg Q12H GIBRAN Administration Metoprolol Succinate 25 mg 02/16/21 12:30 02/17/21 09:12 Toprol-Xl 25mg Tablets PO 03/18/21 12:29 25 mg DAILY GIBRAN Administration Montelukast Sodium 10 mg 02/13/21 10:00 02/17/21 09:12 Singulair 10 Mg PO 03/15/21 09:59 10 mg DAILY GIBRAN Administration Nicotine 21 mg 02/13/21 07:15 02/17/21 09:11 Nicoderm Cq 21 Mg TOP 03/15/21 07:14 21 mg Q24H GIBRAN Administration Ondansetron HCl 4 mg 02/12/21 15:49 Zofran 4 Mg/2 Ml Vial IV 03/14/21 15:48 Q6H PRN PRN NAUSEA/VOMITING Witch Puja 1 pad 02/17/21 09:10 02/17/21 12:59 Tucks TP 03/19/21 09:09 1 pad PRN PRN Administration PAIN Intake & Output (Last 24 hours) 02/15/21 02/16/21 02/17/21 02/18/21 11:59 11:59 11:59 11:59 Intake Total 2592 612 0922 360 Output Total 3850 600 3200 2000 Balance -2390 240 -1440 -1640 Microbiology Results (Last 24 hours) 02/12/21 11:30 Blood Blood Culture Gram Stain - Final Not Reportable 02/12/21 11:30 Blood Blood Culture - Final NO GROWTH 02/12/21 11:35 Blood Blood Culture Gram Stain - Final Not Reportable 02/12/21 11:35 Blood Blood Culture - Final NO GROWTH Orders (Last 24 hours) Category Date Time Status Discharge Routine Discharge 02/17/21 Ordered HydrALAzine HCL 25 MG TAB [Apresoline 25 MG TABLET Med 02/17/21 07:37 Discontinued *] 25 mg PO Q6H PRN PRN Methylprednis Sod Succ 125 mg* [solu-MEDROL 125 MG] Med 02/16/21 22:00 Discontinued 80 mg IV Q12H Witch Puja [Tucks] Med 02/17/21 09:10 Discontinued 1 pad TP PRN PRN Patient Care Notes (Last 24 hours) 02/17/21 13:00 (created 02/17/21 14:09) Case Management Note by Dulce Chakraborty SPOKE WITH [facility], WILL GIVE PORTABLE UNIT FROM [facility] PRIOR TO DISCHARGE, THEY WILL HAVE ALL OTHER EQUIPMENT DELIVERED TO PATIENT HOME. Initialized on 02/17/21 14:09 - END OF NOTE 02/17/21 11:44 Case Management Note by Leonor Leyva S/W [facility]- ALL MEDICATIONS WERE RECEIVED- THEY WILL COST PATIENT $38.64. THIS IS NOT INCLUDING THE DUONEBS THEY ARE WORKING WITH INSURANCE TO GET THOSE COVERED. PATIENT REPORTS SHE WILL BE ABLE TO AFFORD THAT. CALLED [facility] TO FIND OUT COST OF OXYGEN- THEY DID NOT HAVE THE INFORMATION YET FROM THE [place] OFFICE BUT WILL HAVE NATALIA WHO DOES THE FINANCIAL ASSISTANCE GIVE US A CALL BACK TO DISCUSS FINANCIAL OPTIONS FOR PATIENT. PRIMARY RN AWARE Initialized on 02/17/21 11:44 - END OF NOTE 02/17/21 10:46 Case Management Note by Leonor Leyva PATIENT CONTINUES TO DENY ANY OTHER NEW NEEDS AT TIME OF DC. SHE PLANS TO RETURN HOME TO HER PRIOR LEVEL OF FUNCTIONING. ORDER FOR HOME OXYGEN HAS BEEN SUBMITTED. SHE WAS GIVEN PULSE OX TO MONITOR SATS AT HOME. REFERRALS WERE CALLED TO REACH IN TH AND SENT TO [facility]. Initialized on 02/17/21 10:46 - END OF NOTE 02/17/21 09:53 Case Management Note by Leonor Leyva HOME OXYGEN ORDER SUBMITTED THRU [facility] Initialized on 02/17/21 09:53 - END OF NOTE - Vitals & Intake/Output Vital Signs: Vital Signs Temperature 97.7 F 02/17/21 11:41 Pulse Rate 89 02/17/21 11:41 Respiratory Rate 16 02/17/21 11:41 Blood Pressure 185/99 02/17/21 11:41 O2 Sat by Pulse Oximetry 94 L 02/17/21 11:41 Intake & Output: Intake & Output 02/15/21 02/16/21 02/17/21 02/18/21 11:59 11:59 11:59 11:59 Intake Total 7609 105 1936 360 Output Total 3850 600 3200 2000 Balance -2390 240 -0100 -1640 - Lab Result Diagrams: 02/16/21 04:33 02/16/21 04:33 Micro Results-Entire Visit: Microbiology 02/12/21 11:30 Blood Culture Gram Stain - Final Blood Not Reportable Blood Culture - Final NO GROWTH 02/12/21 11:35 Blood Culture Gram Stain - Final Blood Not Reportable Blood Culture - Final NO GROWTH - Procedures and Test Procedures and Tests throughout Hospitalization: Therapy Orders & Screens 02/12/21 15:49 Oxygen Nasal Cannula 3 lpm Comment: Respiratory Therapy Consult ROUTINE Comment: Reason For Exam: 02/13/21 07:00 Respiratory Therapy Assessment DAILY Comment: Diagnosis: exac copd 02/14/21 09:20 RT Miscellaneous Order ROUTINE Comment: Physician Instructions: Reason For Exam: WEAN OXYGEN TOLERATED Diagnosis: exac copd 02/15/21 10:04 Qualify for Home Oxygen TODAY Comment: Diagnosis: exac copd 02/15/21 15:14 PT Eval & Treat (MD Order) ONCE Reason for Eval:: weakness Diagnosis: exac copd Discharge Exam General Appearance: no apparent distress, alert Neurologic Exam: alert, oriented x 3, cooperative, normal mood/affect, nml cerebellar function, sensation nml, No motor deficits Eye Exam: PERRL, EOMI, eyes nml inspection Ears, Nose, Throat Exam: normal ENT inspection, pharynx normal, moist mucous membranes Neck Exam: normal inspection, non-tender, supple, full range of motion Respiratory Exam: normal breath sounds, lungs clear, No respiratory distress Cardiovascular Exam: regular rate/rhythm, normal heart sounds Gastrointestinal/Abdomen Exam: soft, No tenderness, No mass Pelvic Exam: deferred Rectal Exam: deferred Back Exam: normal inspection, normal range of motion, No CVA tenderness, No vertebral tenderness Extremity Exam: normal inspection, normal range of motion Skin Exam: normal color, warm, dry Final Diagnosis/Problem List - Final Discharge Diagnosis/Problem (1) COPD exacerbation Status: Resolved Code(s): J44.1 - CHRONIC OBSTRUCTIVE PULMONARY DISEASE W (ACUTE) EXACERBATION (2) Acute hypoxemic respiratory failure Status: Resolved Code(s): J96.01 - ACUTE RESPIRATORY FAILURE WITH HYPOXIA (3) Anxiety Status: Chronic Code(s): F41.9 - ANXIETY DISORDER, UNSPECIFIED (4) Hypertension Status: Chronic Code(s): I10 - ESSENTIAL (PRIMARY) HYPERTENSION (5) Smoker Status: Chronic Code(s): F17.200 - NICOTINE DEPENDENCE, UNSPECIFIED, UNCOMPLICATED - Discharge Discharge Date: 02/17/21 Disposition: Home, Self-Care Condition: Stable Prescriptions: New Citalopram Hydrobromide 20 mg* [ceLEXa 20 MG] 10 mg PO DAILY 30 Days tablet Albuterol/Ipratropium 3ml Neb* [DUONEB 0.5-3 MG/3 ml Neb] 3 ml IH Q4HRT 30 Days ampul.neb Nicotine 21 mg [Nicoderm CQ 21 MG] 21 mg TOP Q24H 7 Days patch Montelukast Sodium 10 mg [Singulair 10 MG] 10 mg PO DAILY 30 Days tablet Metoprolol Succinate 25 mg Xl* [Toprol-Xl 25MG Tablets] 25 mg PO DAILY 30 Days tab Lisinopril 20 mg [Zestril 20 MG] 40 mg PO DAILY 30 Days tablet Azithromycin 1 gm PO UD #1 packet Methylprednisolone Packet [Medrol Dosepack] 4 mg PO UD #30 packet Discontinued lisinopriL [Lisinopril] 20 mg DAILY No Action Albuterol Sulfate [Proair Hfa] 1 ea TID Instructions: Chronic Obstructive Pulmonary Disease (COPD) (DC), High Blood Pressure (DC), Anxiety, Adult (DC), Oxygen Therapy, Adult (DC) Additional Instructions: -YOU WILL NEED TO WEAR 3L OXYGEN BY [facility] AT ALL TIMES. [facility] WILL BE PROVIDING YOUR OXYGEN AT HOME. CALL THEM AT [phone] WHEN YOU GET HOME SO THEY CAN DELIVER YOUR HOME CONCENTRATOR. -A REFERRAL HAS BEEN MADE WITH [facility] FOR YOU AND THEY WILL BE CONTACTING YOU TO SET UP OUTPATIENT TREATMENT. YOU MAY CALL THEM AT [phone] WITH ANY QUESTIONS OR CONCERNS. Follow up with: BITA MCKINNEY MD [Primary Care Provider] - 02/25/21 2:00 pm Forms: Patient Portal Information
--- NOTE | 2021-02-17 17:43 | PCM.NOTE ---
Date and Time: 02/16/211741 Subjective Assessment: doing better - Review of Systems Constitutional: No Fever, No Chills Eyes: No Symptoms Ears, Nose, & Throat: No Symptoms Respiratory: No Cough, No Short Of Breath Cardiac: No Chest Pain, No Edema, No Syncope Abdominal/Gastrointestinal: No Abdominal Pain, No Nausea, No Vomiting, No Diarrhea Genitourinary Symptoms: No Dysuria Musculoskeletal: No Back Pain, No Neck Pain Skin: No Rash Neurological: No Dizziness, No Focal Weakness, No Sensory Changes Psychological: No Symptoms Endocrine: No Symptoms Hematologic/Lymphatic: No Symptoms Immunological/Allergic: No Symptoms Objective Exam General Appearance: no apparent distress, alert Neurologic Exam: alert, oriented x 3, cooperative, normal mood/affect, nml cerebellar function, sensation nml, No motor deficits Skin Exam: normal color, warm, dry Eye Exam: PERRL, EOMI, eyes nml inspection Ears, Nose, Throat Exam: normal ENT inspection, pharynx normal, moist mucous membranes Neck Exam: normal inspection, non-tender, supple, full range of motion Respiratory Exam: normal breath sounds, lungs clear, No respiratory distress Cardiovascular Exam: regular rate/rhythm, normal heart sounds Gastrointestinal/Abdomen Exam: soft, No tenderness, No mass Extremity Exam: normal inspection, normal range of motion Back Exam: normal inspection, normal range of motion, No CVA tenderness, No vertebral tenderness Pelvic Exam: deferred Rectal Exam: deferred OBJECTIVE DATA Vital Signs: Vital Signs - 24 hr Temp Pulse Resp BP Pulse Ox 02/17/21 11:41 97.7 F 89 16 185/99 94 L 02/17/21 10:39 96 H 20 97 02/17/21 07:31 97.7 F 65 16 173/92 99 02/17/21 06:52 65 20 97 02/17/21 03:56 97.9 F 79 20 185/84 95 02/17/21 02:41 92 H 18 95 02/16/21 23:50 98.1 F 94 H 16 177/81 97 02/16/21 22:32 94 H 16 96 02/16/21 19:36 98.0 F 93 H 21 175/92 95 02/16/21 18:33 85 20 97 Pain Assessment - Last Documented Pain Intensity 0 Pain Scale Used 0-10 Pain Scale Intake and Output: Intake & Output 02/15/21 02/16/21 02/17/21 06/18/21 11:59 11:59 11:59 11:59 Intake Total 2356 088 6445 360 Output Total 3850 600 3200 2000 Balance -2390 240 -1440 -1640 Multi-Disciplinary Progress Notes: Multi-Disciplinary Progress Notes 02/17/21 13:00 (created 02/17/21 14:09) Case Management Note by Dulce Chakraborty SPOKE WITH [facility], WILL GIVE PORTABLE UNIT FROM [facility] PRIOR TO DISCHARGE, THEY WILL HAVE ALL OTHER EQUIPMENT DELIVERED TO PATIENT HOME. Initialized on 02/17/21 14:09 - END OF NOTE 02/17/21 11:44 Case Management Note by Leonor Leyva S/W [facility]- ALL MEDICATIONS WERE RECEIVED- THEY WILL COST PATIENT $38.64. THIS IS NOT INCLUDING THE DUONEBS THEY ARE WORKING WITH INSURANCE TO GET THOSE COVERED. PATIENT REPORTS SHE WILL BE ABLE TO AFFORD THAT. CALLED [facility] TO FIND OUT COST OF OXYGEN- THEY DID NOT HAVE THE INFORMATION YET FROM THE [place] OFFICE BUT WILL HAVE NATALIA WHO DOES THE FINANCIAL ASSISTANCE GIVE US A CALL BACK TO DISCUSS FINANCIAL OPTIONS FOR PATIENT. PRIMARY RN AWARE Initialized on 02/17/21 11:44 - END OF NOTE 02/17/21 10:46 Case Management Note by Leonor Leyva PATIENT CONTINUES TO DENY ANY OTHER NEW NEEDS AT TIME OF DC. SHE PLANS TO RETURN HOME TO HER PRIOR LEVEL OF FUNCTIONING. ORDER FOR HOME OXYGEN HAS BEEN SUBMITTED. SHE WAS GIVEN PULSE OX TO MONITOR SATS AT HOME. REFERRALS WERE CALLED TO REACH IN AND SENT TO ARE[facility] . Initialized on 02/17/21 10:46 - END OF NOTE 02/17/21 09:53 Case Management Note by Leonor Leyva HOME OXYGEN ORDER SUBMITTED THRU [facility] Initialized on 02/17/21 09:53 - END OF NOTE Assessment/Plan (1) COPD exacerbation Status: Acute Assessment & Plan: improving Code(s): J44.1 - CHRONIC OBSTRUCTIVE PULMONARY DISEASE W (ACUTE) EXACERBATION (2) Acute hypoxemic respiratory failure Status: Resolved Code(s): J96.01 - ACUTE RESPIRATORY FAILURE WITH HYPOXIA (3) Anxiety Status: Chronic Code(s): F41.9 - ANXIETY DISORDER, UNSPECIFIED (4) Hypertension Status: Chronic Qualifiers: Hypertension type: essential hypertension Qualified Code(s): I10 - Essential (primary) hypertension Code(s): I10 - ESSENTIAL (PRIMARY) HYPERTENSION (5) Smoker Status: Chronic Code(s): F17.200 - NICOTINE DEPENDENCE, UNSPECIFIED, UNCOMPLICATED
== END 2021-02-17 13:10 | disposition home or self-care (01) ==
LOC: ED 10:55 → MED SURG 15:40
PROVIDERS: ADMIT Family Medicine; ATTEND General Practice
DX: J44.1 Chronic obstructive pulmonary disease with (acute) exacerbation (principal); J96.01 Acute respiratory failure with hypoxia; I10 Essential (primary) hypertension; F17.210 Nicotine dependence, cigarettes, uncomplicated; Z79.899 Other long term (current) drug therapy; F41.9 Anxiety disorder, unspecified; R79.89 Other specified abnormal findings of blood chemistry; F32.9 Major depressive disorder, single episode, unspecified; Z20.828 Contact with and (suspected) exposure to other viral communicable diseases
CPT/HCPCS: 36000; 36415; 36600; 71045; 71260; 80053; 82375; 82803; 83605; 83880; 84484; 85025; 85379; 85610; 87040; 93005; 93268; 93306; 94640; 94760; 94762; 96365; 96374; 97161; 99285; G0378; U0003; J0360; J0456; J0696; J1650; J2930; A9270-GY

== ENCOUNTER 2021-02-18 14:29 | Emergency (ER) | payer MEDICARE ==
--- NOTE | 2021-02-18 14:36 | ERPHSYRPT ---
- History of Present Illness Time Seen by Provider: 02/18/21 14:36 Historian: patient, EMS Exam Limitations: clinical condition Physician History: This is a 56-year-old thin female known to this emergency department with a history of COPD and hypertension. Patient was seen by me in this hospital on 02/12/2021 and was admitted for COPD exacerbation. A work-up on that date included slightly elevated D-dimer, normal troponin levels, no acute findings on twelve-lead EKG and a CAT scan of the chest with contrast showing no infiltrates and no pulmonary emboli. Patient was discharged from that hospitalization on 02/17/2021. Patient woke up today feeling a little more short of breath and then began having chest pain that was sharp and nonradiating. It was central in location. Patient arrived to the emergency department hypertensive and in pain. The EKG shows a new finding of ST elevation in V1 V2 V3 and V6. STEMI protocol started. Activities at Onset: none Quality: sharpness, stabbing Location: substernal, central Severity of Pain-Max: moderate Severity of Pain-Current: moderate Modifying Factors: Improves With: nothing Associated Symptoms: shortness of breath Prior Chest Pain/Cardiac Workup: recently seen/treated, recent hospitalization Nitro Today/Relief: no nitro taken today Aspirin Treatment Today: no aspirin today Allergies/Adverse Reactions: No Known Drug Allergies Allergy (Verified 02/18/21 15:06) Home Medications: Albuterol Sulfate [Proair Hfa] 1 ea TID 02/12/21 [History] Hx Influenza Vaccination/Date Given: No Hx Pneumococcal Vaccination/Date Given: No Travel Risk - International Travel Have you traveled outside of the country in past 3 weeks: No - Coronavirus Screening Are you exhibiting any of the following symptoms?: No Close contact with a COVID-19 positive Pt in past 14-21 Days: No - Vaccine Status Have you recieved a Covid-19 vaccination: No - Review of Systems Constitutional: No Symptoms Eyes: No Symptoms Ears, Nose, & Throat: No Symptoms Respiratory: Dyspnea Cardiac: Chest Pain Abdominal/Gastrointestinal: No Symptoms Genitourinary Symptoms: No Symptoms Musculoskeletal: No Symptoms Skin: No Symptoms Neurological: No Symptoms Psychological: No Symptoms Endocrine: No Symptoms Hematologic/Lymphatic: No Symptoms Immunological/Allergic: No Symptoms All Other Systems: Reviewed and Negative - Past Medical History Pertinent Past Medical History: Yes Respiratory History: COPD Musculoskeletal History: Arthritis, Degenerative Disk Disease, Other Other Medical History: fx right leg- didnt heal well - Past Surgical History Past Surgical History: Yes Gastrointestinal: Appendectomy, Cholecystectomy Musculoskeletal: Orthopedic Surgery Female Surgical History: Hysterectomy Other Surgical History: right leg - Social History Smoking Status: Current every day smoker Exposure to second hand smoke: Yes Drug Use: marijuana Patient Lives Alone: Yes - Nursing Vital Signs Nursing Vital Signs: Initial Vital Signs Temperature 98.1 F 02/18/21 14:46 Pulse Rate 82 02/18/21 14:46 Respiratory Rate 22 02/18/21 14:46 Blood Pressure 170/71 02/18/21 14:46 O2 Sat by Pulse Oximetry 98 02/18/21 14:46 Pain Scale Pain Intensity 0 - Physical Exam General Appearance: moderate distress, alert, anxiety, thin Eye Exam: PERRL/EOMI, eyes nml inspection Ears, Nose, Throat Exam: normal ENT inspection, moist mucous membranes Neck Exam: normal inspection, non-tender, supple, full range of motion Respiratory Exam: normal breath sounds, chest tenderness, lungs clear, respiratory distress (Mild), airway intact Cardiovascular Exam: regular rate/rhythm, normal heart sounds, normal peripheral pulses Gastrointestinal/Abdomen Exam: soft, normal bowel sounds, No tenderness Pelvic Exam: not done Rectal Exam: not done Back Exam: normal inspection, normal range of motion, No CVA tenderness, No vertebral tenderness Extremity Exam: normal inspection, normal range of motion, pelvis stable Neurologic Exam: alert, oriented x 3, cooperative, 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, nml cerebellar function, nml station & gait, sensation nml Skin Exam: normal color, warm, dry Lymphatic Exam: No adenopathy SpO2 Interpretation: O2 applied O2 Delivery: Room Air - Course Nursing assessment & vital signs reviewed: Yes EKG Interpreted by Me: RATE (65), NORMAL AXIS, NORMAL INTERVALS, ST Elev (V1, V2, V3 and V6.), Other (The ST elevation in the above leads is new when compared to EKG dated 02/12/2021) Ordered Tests: Active Orders 24 hr Category Date Time Status Exercise Physiologist Certified STAT Care 02/18/21 14:44 Active EKG-ER Only STAT Care 02/18/21 14:40 Active IV Insertion STAT Care 02/18/21 14:40 Active IV Insertion-2nd Peripheral STAT Care 02/18/21 14:43 Active Oxygen-ED Only Nasal Cannula 4 lpm Care 02/18/21 14:45 Active Pulse Oximetry (ED) STAT Care 02/18/21 14:52 Active CBC W DIFF Stat Lab 02/18/21 14:44 Completed CMP Stat Lab 02/18/21 14:44 Received D-DIMER QUANTITATIVE Stat Lab 02/18/21 14:44 Received Manual Differential NC Stat Lab 02/18/21 14:44 Completed NT PRO BNP Stat Lab 02/18/21 14:44 Received TROPONIN Q3H Lab 02/18/21 14:44 Received TROPONIN Q3H Lab 02/18/21 17:45 Ordered TROPONIN Q3H Lab 02/18/21 20:45 Ordered TROPONIN Q3H Lab 02/18/21 23:45 Ordered TROPONIN Q3H Lab 02/19/21 02:45 Ordered Medication Summary Discontinued Medications Generic Name Dose Route Start Last Admin Trade Name Freq PRN Reason Stop Dose Admin Aspirin 324 mg 02/18/21 14:40 02/18/21 14:46 Baby Aspirin 81 Mg Chew PO 02/18/21 14:41 324 mg STAT ONE Administration Heparin Sodium (Beef Lung) 5,000 unit 02/18/21 14:51 02/18/21 14:55 Heparin 5000 Units/0.5 Ml (High Risk Med) IV 02/18/21 14:52 5,000 unit STAT ONE Administration Morphine Sulfate 2 mg 02/18/21 14:52 02/18/21 14:54 Morphine Sulfate 2 Mg Inj IV 02/18/21 14:53 2 mg STAT ONE Administration Morphine Sulfate Confirm 02/18/21 14:53 Morphine Sulfate 2 Mg Inj Administered 02/18/21 14:54 Dose 2 mg .ROUTE .STK-MED ONE Nitroglycerin 1 gm 02/18/21 14:52 02/18/21 14:55 Nitro-Bid 2% Ud Packets TOP 02/18/21 14:53 1 gm STAT ONE Administration Nitroglycerin Confirm 02/18/21 14:53 Nitro-Bid 2% Ud Packets Administered 02/18/21 14:54 Dose 1 gm .ROUTE .STK-MED ONE Ondansetron HCl Confirm 02/18/21 14:52 Zofran 4 Mg/2 Ml Vial Administered 02/18/21 14:53 Dose 4 mg .ROUTE .STK-MED ONE Lab/Rad Data: Laboratory Result Diagrams 02/18/21 14:44 Laboratory Results 02/18/21 Range/Units 14:44 WBC 11.7 H (4.0-10.5) K/mm3 RBC 5.30 (4.1-5.4) M/mm3 Hgb 17.0 H (12.0-16.0) gm/dl Hct 52.8 H (35-47) % MCV 99.6 (78-100) fl MCH 32.1 H (26-32) pg MCHC 32.2 (32-36) g/dl RDW 12.5 (11.5-14.0) % Plt Count 228 (150-450) K/mm3 MPV 10.2 (7.5-11.0) fl Gran % 59.4 (36.0-66.0) % Eos # (Auto) 0.09 (0-0.5) Absolute Lymphs (auto) 3.69 (1.0-4.6) Absolute Monos (auto) 0.94 (0.0-1.3) Lymphocytes % 31.6 (24.0-44.0) % Monocytes % 8.1 (0.0-12.0) % Eosinophils % 0.8 (0.00-5.0) % Basophils % 0.1 (0.0-0.4) % Absolute Granulocytes 6.94 H (1.4-6.9) Basophils # 0.01 (0-0.4) - Progress Progress: improved, re-examined Air Movement: fair Progress Note: 02/18/21 15:08 Medical decision making: This patient has COPD chronically. Patient was admitted into this hospital 02/12/2021 and was discharged to home on 02/17/2021. Today, she was experiencing significant chest pain and associated increase in her shortness of breath. Patient had no diagnosed coronary artery disease in the past. She presents to the emergency room with hypertension and the above- stated symptoms. Her EKG had new findings of ST elevation. We started the STEMI protocol. We contacted [facility]. Gamaliel Salcido, emergency room physician at [facility] in [facility] declined transfer because there was already a patient at that institution getting ready for a emergent cardiac catheterization. Therefore, we contacted [facility] emergency department. I spoke with Dr. Perez, the emergency room physician at that facility. Patient history, condition, vital signs and treatment that was provided the patient emergently was reviewed with him. We sent the patient's old and new EKG to their facility as well. EMS was already here and immediately transferred ported this patient to [facility] emergency department. Blood Culture(s) Obtained: No Antibiotics given: No - Departure Departure Disposition: Transfer Clinical Impression: STEMI (ST elevation myocardial infarction) Condition: Fair Critical Care Time: Yes Critical Care Time(excluding separately billable procedures): Critical 30-74 mins Referrals: BITA MCKINNEY MD [Primary Care Provider] -
[2021-02-18] MEDS ORDERED: BABY ASPIRIN 81 MG CHEW PO ONE (14:40)
[2021-02-18] MEDS ORDERED: Heparin 5000 UNITS/0.5 ML (HIGH RISK MED) IV ONE (14:51)
[2021-02-18 14:52] LABS: Absolute Neutrophil Ct (ANC) 6.94 (1.4-6.9); BASOPHIL % 0.1 % (0.0-0.4); Basophil (Absolute #) 0.01 (0-0.4); Eosinophil % 0.8 % (0.00-5.0); Eosinophil (Absolute #) 0.09 (0-0.5); Hematocrit 52.8 % (35-47); Lymphocyte (Absolute #) 3.69 (1.0-4.6); Lymphocytes % 31.6 % (24.0-44.0); Mean Cell Volume 99.6 fl (78-100); Mean Corpuscular Hemoglobin 32.1 pg (26-32); Mean Corpuscular Hgb Concent. 32.2 g/dl (32-36); Mean Platelet Volume 10.2 fl (7.5-11.0); Monocyte (Absolute #) 0.94 (0.0-1.3); Monocytes % 8.1 % (0.0-12.0); Neutrophil % 59.4 % (36.0-66.0); Platelet Count 228 K/mm3 (150-450); Red Cell Distribution Width 12.5 % (11.5-14.0); White Blood Count 11.7 K/mm3 (4.0-10.5)
[2021-02-18] MEDS ORDERED: NITRO-BID 2% UD PACKETS TOP ONE (14:52)
[2021-02-18] MEDS ORDERED: Zofran 4 MG/2 ML VIAL ONE (14:52)
[2021-02-18] MEDS ORDERED: MORPHINE SULFATE 2 MG INJ IV ONE (14:52)
[2021-02-18] MEDS ORDERED: NITRO-BID 2% UD PACKETS ONE (14:53)
[2021-02-18] MEDS ORDERED: MORPHINE SULFATE 2 MG INJ ONE (14:53)
[2021-02-18 15:01] VITALS: BP 170/71; PULSE 82; O2SAT 98
[2021-02-18 15:09] LABS: ATYPICAL LYMPHS 4 %; Lymphocytes 38 % (24-44); Monocyte 6 % (0.0-12.0); Neutrophils 52 % (36.0-66.0); Platelet Estimate NORMAL (NORMAL); Total Cells Counted 100
[2021-02-18 15:12] LABS: ALBUMIN 3.6 g/dL (3.5-5.0); ALKALINE PHOSPHATASE 51 U/L (38-126); ANION GAP 7.6 MEQ/L (5-15); BLOOD UREA NITROGEN 23 mg/dL (7-17); CHLORIDE 97 mmol/L (98-107); Calcium 8.8 mg/dL (8.4-10.2); Carbon Dioxide 38 mmol/L (22-30); Creatinine 1 0.71 mg/dL (0.52-1.04); EST GLOMERULAR FILTRATION RATE > 60.0 ML/MIN; Glucose 97 mg/dL (74-106); NT PRO BNP 4390 pg/mL (0-900); SGOT/AST 37 U/L (14-36); SGPT/ALT 41 U/L (0-35); SODIUM 139 mmol/L (137-145)
[2021-02-18] MEDS ORDERED: Zofran 4 MG/2 ML VIAL IV ONE (16:46)
== END 2021-02-18 15:03 | disposition short-term general hospital (02) ==
LOC: ED 14:29
DX: I21.3 ST elevation (STEMI) myocardial infarction of unspecified site (principal); J44.9 Chronic obstructive pulmonary disease, unspecified
CPT/HCPCS: 36000; 36415; 80053; 83880; 84484; 85025; 85379; 93005; 93041; 94760; 96374; 96375; 99285; 99291; J1644; J2270; J2405; A9270-GY

== ENCOUNTER 2021-03-28 12:02 | Emergency (ER) | payer MEDICARE ==
--- NOTE | 2021-03-28 12:47 | XRAY ---
Indication: Dyspnea. Comparison: February 15, 2021. Portable chest again demonstrates COPD and right base calcified granuloma. No focal infiltrate, consolidation, or large effusion. Heart not enlarged. Bony thorax intact again with mild osteopenia and degenerative changes. Impression: Continued nonacute chest with chronic features.
[2021-03-28 12:49] LABS: Absolute Neutrophil Ct (ANC) 2.83 (1.4-6.9); BASOPHIL % 0.6 % (0.0-0.4); Basophil (Absolute #) 0.03 (0-0.4); Eosinophil % 1.9 % (0.00-5.0); Eosinophil (Absolute #) 0.09 (0-0.5); Hematocrit 38.2 % (35-47); Hemoglobin 12.3 gm/dl (12.0-16.0); Lymphocyte (Absolute #) 1.48 (1.0-4.6); Mean Corpuscular Hemoglobin 31.9 pg (26-32); Mean Corpuscular Hgb Concent. 32.2 g/dl (32-36); Mean Platelet Volume 10.1 fl (7.5-11.0); Monocyte (Absolute #) 0.34 (0.0-1.3); Monocytes % 7.1 % (0.0-12.0); Neutrophil % 59.4 % (36.0-66.0); Platelet Count 179 K/mm3 (150-450); Red Blood Count 3.86 M/mm3 (4.1-5.4); Red Cell Distribution Width 13.1 % (11.5-14.0); White Blood Count 4.8 K/mm3 (4.0-10.5)
[2021-03-28 13:01] LABS: INR 0.89 (0.8-3.0); PROTIME 10.5 SECONDS (9.4-12.5)
[2021-03-28 13:03] LABS: PTT 32.7 SECONDS (25.1-36.5)
[2021-03-28 13:15] LABS: ALBUMIN 3.7 g/dL (3.5-5.0); ALKALINE PHOSPHATASE 48 U/L (38-126); ANION GAP 12.2 MEQ/L (5-15); BLOOD UREA NITROGEN 16 mg/dL (7-17); CHLORIDE 105 mmol/L (98-107); Calcium 9.2 mg/dL (8.4-10.2); Carbon Dioxide 28 mmol/L (22-30); Creatinine 1 0.63 mg/dL (0.52-1.04); EST GLOMERULAR FILTRATION RATE > 60.0 ML/MIN; Glucose 93 mg/dL (74-106); NT PRO BNP 614 pg/mL (0-900); Potassium 3.9 mmol/L (3.5-5.1); SGOT/AST 23 U/L (14-36); SGPT/ALT 16 U/L (0-35); SODIUM 141 mmol/L (137-145)
--- NOTE | 2021-03-28 13:41 | ERPHSYRPT ---
- History of Present Illness Historian: patient Exam Limitations: no limitations Patient Subjective Stated Complaint: PT states "Last my hands were going numb and hurting, my legs are swelling." Triage Nursing Assessment: Pt presented alert and oriented X 3, skin pwd Pt ambulates with a slow gait, able to speak in clear fulls entences pt in no apparent respiratory distres. Physician History: 56 yo wf s/p [place]/stent placements in 02/21 at [facility] presents w L sternal, sharp chest pain which began at 9:30. Pain 5/10 on scale wo radiation. Nothing makes it better or worse. She denies N/V/diaphoresis. Pain lasts 15-20 seconds. Pt smoked 1ppd until 02/21 and has HTN/hyperlipidemia. She is 2L O2 dep since [place]. Cough/fever are denied. Pt states that she has mild edema. Timing/Duration: today (9:30AM) Activities at Onset: rest, sleep Quality: sharpness Location: substernal Chest Pain Radiation: no radiation Severity of Pain-Max: moderate Severity of Pain-Current: mild Modifying Factors: Improves With: nothing Associated Symptoms: shortness of breath, No nausea, No vomiting, No palpitations, No heartburn, No abdominal pain, No cough, No hurts to breathe, No diaphoresis, No chills, No fever, No fatigue, No weakness, No swelling/lump in chest, No syncope, No rash, No headache, No dizziness, No edema, No back pain Prior Chest Pain/Cardiac Workup: cardiac cath, heart attack Nitro Today/Relief: no nitro taken today Aspirin Treatment Today: 81 mg x 1 Allergies/Adverse Reactions: No Known Drug Allergies Allergy (Verified 02/18/21 15:06) Home Medications: Albuterol Sulfate [Proair Hfa] 1 ea TID 02/12/21 [History] ALPRAZolam [Alprazolam] 0.5 mg PO DAILY 03/28/21 [History] Trazodone HCl 50 mg [Desyrel 50 mg] 50 mg PO 03/28/21 [History] dilTIAZem HCL [Tiadylt ER] 180 mg PO DAILY 03/28/21 [History] Hx Tetanus, Diphtheria Vaccination/Date Given: Yes Hx Influenza Vaccination/Date Given: No Hx Pneumococcal Vaccination/Date Given: No Immunizations Up to Date: Yes Travel Risk - International Travel Have you traveled outside of the country in past 3 weeks: No - Coronavirus Screening Are you exhibiting any of the following symptoms?: No Close contact with a COVID-19 positive Pt in past 14-21 Days: No - Vaccine Status Have you recieved a Covid-19 vaccination: No - Review of Systems Constitutional: No Symptoms Eyes: No Symptoms Ears, Nose, & Throat: No Symptoms Respiratory: No Symptoms, Dyspnea Cardiac: Chest Pain Abdominal/Gastrointestinal: No Symptoms Genitourinary Symptoms: No Symptoms Musculoskeletal: No Symptoms Skin: No Symptoms Neurological: No Symptoms Psychological: No Symptoms Endocrine: No Symptoms Hematologic/Lymphatic: No Symptoms Immunological/Allergic: No Symptoms - Past Medical History Pertinent Past Medical History: Yes Neurological History: No Pertinent History ENT History: No Pertinent History Cardiac History: Coronary Artery Disease, High Cholesterol, Hypertension, Myocardial Infarction ([place]) Respiratory History: COPD Endocrine Medical History: No Pertinent History Musculoskeletal History: Arthritis, Degenerative Disk Disease, Other GI Medical History: No Pertinent History History: No Pertinent History Female Reproductive Disorders: No Pertinent History Other Medical History: fx right leg- didnt heal well - Past Surgical History Past Surgical History: Yes Gastrointestinal: Appendectomy, Cholecystectomy Musculoskeletal: Orthopedic Surgery Female Surgical History: Hysterectomy Other Surgical History: right leg. cardiac stents x4 - Social History Smoking Status: Former smoker Exposure to second hand smoke: Yes Drug Use: none Patient Lives Alone: Yes Significant Family History: no pertinent family hx - Female History Hx Now: No - Nursing Vital Signs Nursing Vital Signs: Initial Vital Signs Temperature 97.8 F 03/28/21 12:03 Pulse Rate 63 03/28/21 12:03 Respiratory Rate 20 03/28/21 12:03 Blood Pressure 175/95 03/28/21 12:03 O2 Sat by Pulse Oximetry 98 03/28/21 12:03 Pain Scale Pain Intensity 2 Hypertensive - Physical Exam General Appearance: no apparent distress, anxiety Eye Exam: PERRL/EOMI, eyes nml inspection Ears, Nose, Throat Exam: normal ENT inspection, TMs normal, pharynx normal, moist mucous membranes Neck Exam: normal inspection, non-tender, supple, full range of motion, No meningismus, No mass, No Brudzinski, No Kernig's Respiratory Exam: airway intact, crackles/rales (Faint rales R base/Decreased L base), No respiratory distress Cardiovascular Exam: regular rate/rhythm, normal peripheral pulses, murmur (1/6 JAZMINE) Gastrointestinal/Abdomen Exam: soft, normal bowel sounds, No tenderness Back Exam: normal inspection, normal range of motion, No CVA tenderness Extremity Exam: normal inspection, normal range of motion, pedal edema (Trace B) Neurologic Exam: alert, oriented x 3, cooperative, 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, normal mood/affect, sensation nml Skin Exam: normal color, warm, dry Lymphatic Exam: No adenopathy SpO2 Interpretation: normal SpO2: 100 O2 Delivery: Room Air - Course Nursing assessment & vital signs reviewed: Yes EKG Interpreted by Me: RATE (NSR/R59/Normal QT-QTc/LVH/Twave inversion V5-V6) - Radiology Exams Chest X-ray Interpretation: Discussed w/ radiologist (NAD) Ordered Tests: Active Orders 24 hr Category Date Time Status EKG-ER Only STAT Care 03/28/21 12:26 Completed IV Insertion STAT Care 03/28/21 12:26 Completed CHEST 1 VIEW (PORTABLE) Stat Exams 03/28/21 12:27 Completed CBC W DIFF Stat Lab 03/28/21 12:46 Completed CMP Stat Lab 03/28/21 12:46 Completed NT PRO BNP Stat Lab 03/28/21 12:46 Completed PROTIME WITH INR Stat Lab 03/28/21 12:46 Completed PTT Stat Lab 03/28/21 12:46 Completed TROPONIN Q3H Lab 03/28/21 12:46 Completed TROPONIN Q3H Lab 03/28/21 15:20 Completed Medication Summary Discontinued Medications Generic Name Dose Route Start Last Admin Trade Name Gustavo PRN Reason Stop Dose Admin Aspirin 324 mg 03/28/21 16:20 Baby Aspirin 81 Mg Chew PO 03/28/21 16:21 STAT ONE Lab/Rad Data: Laboratory Result Diagrams 03/28/21 12:46 03/28/21 12:46 Laboratory Results 03/28/21 03/28/21 03/28/21 Range/Units 15:20 12:46 12:46 WBC (4.0-10.5) K/mm3 RBC (4.1-5.4) M/mm3 Hgb (12.0-16.0) gm/dl Hct (35-47) % MCV (78-100) fl MCH (26-32) pg MCHC (32-36) g/dl RDW (11.5-14.0) % Plt Count (150-450) K/mm3 MPV (7.5-11.0) fl Gran % (36.0-66.0) % Eos # (Auto) (0-0.5) Absolute Lymphs (auto) (1.0-4.6) Absolute Monos (auto) (0.0-1.3) Lymphocytes % (24.0-44.0) % Monocytes % (0.0-12.0) % Eosinophils % (0.00-5.0) % Basophils % (0.0-0.4) % Absolute Granulocytes (1.4-6.9) Basophils # (0-0.4) PT 10.5 (9.4-12.5) SECONDS INR 0.89 (0.8-3.0) APTT 32.7 (25.1-36.5) SECONDS Sodium (137-145) mmol/L Potassium (3.5-5.1) mmol/L Chloride (98-107) mmol/L Carbon Dioxide (22-30) mmol/L Anion Gap (5-15) MEQ/L BUN (7-17) mg/dL Creatinine (0.52-1.04) mg/dL Estimated GFR ML/MIN Glucose (74-106) mg/dL Calcium (8.4-10.2) mg/dL Total Bilirubin (0.2-1.3) mg/dL AST (14-36) U/L ALT (0-35) U/L Alkaline Phosphatase (38-126) U/L Troponin I < 0.012 < 0.012 (0.000-0.034) ng/mL NT-Pro-B Natriuret Pep (0-900) pg/mL Serum Total Protein (6.3-8.2) g/dL Albumin (3.5-5.0) g/dL 03/28/21 03/28/21 Range/Units 12:46 12:46 WBC 4.8 (4.0-10.5) K/mm3 RBC 3.86 L (4.1-5.4) M/mm3 Hgb 12.3 (12.0-16.0) gm/dl Hct 38.2 (35-47) % MCV 99.0 (78-100) fl MCH 31.9 (26-32) pg MCHC 32.2 (32-36) g/dl RDW 13.1 (11.5-14.0) % Plt Count 179 (150-450) K/mm3 MPV 10.1 (7.5-11.0) fl Gran % 59.4 (36.0-66.0) % Eos # (Auto) 0.09 (0-0.5) Absolute Lymphs (auto) 1.48 (1.0-4.6) Absolute Monos (auto) 0.34 (0.0-1.3) Lymphocytes % 31.0 (24.0-44.0) % Monocytes % 7.1 (0.0-12.0) % Eosinophils % 1.9 (0.00-5.0) % Basophils % 0.6 (0.0-0.4) % Absolute Granulocytes 2.83 (1.4-6.9) Basophils # 0.03 (0-0.4) PT (9.4-12.5) SECONDS INR (0.8-3.0) APTT (25.1-36.5) SECONDS Sodium 141 (137-145) mmol/L Potassium 3.9 (3.5-5.1) mmol/L Chloride 105 (98-107) mmol/L Carbon Dioxide 28 (22-30) mmol/L Anion Gap 12.2 (5-15) MEQ/L BUN 16 (7-17) mg/dL Creatinine 0.63 (0.52-1.04) mg/dL Estimated GFR > 60.0 ML/MIN Glucose 93 (74-106) mg/dL Calcium 9.2 (8.4-10.2) mg/dL Total Bilirubin 0.40 (0.2-1.3) mg/dL AST 23 (14-36) U/L ALT 16 (0-35) U/L Alkaline Phosphatase 48 (38-126) U/L Troponin I (0.000-0.034) ng/mL NT-Pro-B Natriuret Pep 614 (0-900) pg/mL Serum Total Protein 6.0 L (6.3-8.2) g/dL Albumin 3.7 (3.5-5.0) g/dL - Progress Progress: improved Progress Note: 03/28/21 16:20 Dr. Mckinney wants to transfer to [facility] 03/28/21 17:[address] Salcido ER at [facility], wants Dr. Salcido, business solutions architect called who performed cath 02/19/[address] Salcido, business solutions architect, wants pt sent home. He performed cath on 02/19/21 at [facility] and does not believe that chest pain is of cardiac origin. Pt in stable condition wo chest pain upon discharge. 03/28/21 20:17 Cath report reviewed from [facility] 02/19/21 w 20%LAD lesion/10% Circ lesion/20% RCA lesion 03/28/21 20:19 Discussed with : Nery Counseled pt/family regarding: diagnosis, need for follow-up, rad results - Departure Departure Disposition: Home Clinical Impression: Chest pain Condition: Stable Critical Care Time: No Referrals: BITA MCKINNEY MD [Primary Care Provider] - Instructions: Chest Pain (DC) Additional Instructions: Return to ER for increasing pain or shortness of breath Follow up w Dr. Salcido on previously scheduled appointment 03/01/21
[2021-03-28] MEDS ORDERED: BABY ASPIRIN 81 MG CHEW PO ONE (16:20)
[2021-03-28 17:24] VITALS: BP 136/69; PULSE 51; O2SAT 100
== END 2021-03-28 18:03 | disposition home or self-care (01) ==
LOC: ED 12:02
DX: R07.9 Chest pain, unspecified (principal)
CPT/HCPCS: 36000; 36415; 71045; 80053; 83880; 84484; 85025; 85610; 85730; 93005; 99284

== ENCOUNTER 2023-09-15 03:45 | Emergency (ER) | payer MEDICARE ==
[2023-09-15 03:52] VITALS: TEMP 99.4
--- NOTE | 2023-09-15 04:08 | ERPHSYRPT ---
- History of Present Illness Time Seen by Provider: 09/15/23 04:05 Source: patient Exam Limitations: clinical condition Patient Subjective Stated Complaint: shortness of breath, cough, headache, body aches, fatigue Triage Nursing Assessment: pt dropped off by a friend, brought back to ER in a wheelchair. Pt c/o sob since Sunday, cough, headache, body aches and fatigue. Pt usually wears home O2 at 2L aat, but increased it to 3L on Sunday09/14/23. Pt arrived wearing 3L n/c but O2 sats at 85%. Increased O2 to 4L n/c, O2 sats at 94%. Lungs are tight, decreased and exp wheezes ant ant post bilat, upper and lower lobes. Pt has a dry, hacky, non-prod cough. Heart tones reg. Pt denies any pain. Physician History: This is a thin 58-year-old white female patient of Dr. Mckinney who is her primary care provider, Dr. Dorado, who is her beam dyer and Dr. Ignacio, who is her success coach and presents to the emergency department by private vehicle because of worsening shortness of breath, cough, headache, body ache and fatigue over the last 3 to 4 days. Patient is a chronic smoker of cigarettes. She stated that her symptoms got so bad that she had to stop smoking cigarettes in the last 3 to 4 days. Patient ordinarily wears 2 L of oxygen via nasal cannula because of COPD. She has had 2 increase this. She arrived and was dropped off to the emergency department by a friend and we will check back to her room where on 3 L oxygen via nasal cannula provided her with a oxygen saturation of 85%. Therefore, we increased it to 5 L and contacted respiratory therapy. Patient is very hard of hearing. Patient has a history of hypertension, coronary artery disease (4 cardiac stents), hyperlipidemia and degenerative disc disease. She is not on any anticoagulation therapy. She does not complain of chest pain. She has no abdominal pain. She has no complaints of nausea vomiting or diarrhea symptoms. Timing/Duration: day(s), worse Activities at Onset: none Severity of Dyspnea-Max: moderate Severity of Dyspnea-Current: moderate Possible Cause: occasional episodes Modifying Factors: Improves With: coughing, oxygen (Improves), rest (Improved) Associated Symptoms: wheezing, weakness, No chest pain/discomfort, No productive cough Allergies/Adverse Reactions: No Known Drug Allergies Allergy (Verified 09/15/23 04:03) Home Medications: Albuterol Sulfate [Proair Hfa] 1 ea TID 02/12/21 [History] Trazodone HCl 50 mg [Desyrel 50 mg] 50 mg PO HS 03/28/21 [History] dilTIAZem HCL [Tiadylt ER] 180 mg PO DAILY 03/28/21 [History] Hx Tetanus, Diphtheria Vaccination/Date Given: No Hx Influenza Vaccination/Date Given: No Hx Pneumococcal Vaccination/Date Given: No Immunizations Up to Date: No Travel Risk - International Travel Have you traveled outside of the country in past 3 weeks: No - Coronavirus Screening Symptoms: Cough: New Onset, Shortness of Breath, Headaches/Body Aches/Fatigue - Vaccine Status Have you recieved a Covid-19 vaccination: No - Review of Systems Constitutional: Fatigue, Weakness Eyes: No Symptoms Ears, Nose, & Throat: No Symptoms Respiratory: Cough, Dyspnea, Wheezing Cardiac: No Symptoms Abdominal/Gastrointestinal: No Symptoms Genitourinary Symptoms: No Symptoms Musculoskeletal: Arthralgias, Myalgias Skin: No Symptoms Neurological: No Symptoms Psychological: No Symptoms Endocrine: No Symptoms Hematologic/Lymphatic: No Symptoms Immunological/Allergic: No Symptoms All Other Systems: Reviewed and Negative - Past Medical History Pertinent Past Medical History: Yes Neurological History: No Pertinent History ENT History: No Pertinent History Cardiac History: Coronary Artery Disease, High Cholesterol, Hypertension, Myocardial Infarction ([place]) Respiratory History: COPD Endocrine Medical History: No Pertinent History Musculoskeletal History: Arthritis, Degenerative Disk Disease, Other GI Medical History: Gallbladder Disease History: No Pertinent History Female Reproductive Disorders: No Pertinent History Other Medical History: fx right leg- didnt heal well - Past Surgical History Past Surgical History: Yes Gastrointestinal: Appendectomy, Cholecystectomy Musculoskeletal: Orthopedic Surgery Female Surgical History: Hysterectomy Other Surgical History: right leg. cardiac stents x4 - Social History Smoking Status: Current every day smoker How long have you smoked: 25 years Exposure to second hand smoke: Yes Drug Use: none Patient Lives Alone: No Significant Family History: no pertinent family hx - Nursing Vital Signs Nursing Vital Signs: Initial Vital Signs Temperature 99.4 F 09/15/23 03:48 Pulse Rate 117 H 09/15/23 03:48 Respiratory Rate 32 H 09/15/23 03:48 Blood Pressure 121/76 09/15/23 03:48 O2 Sat by Pulse Oximetry 85 L 09/15/23 03:48 Pain Scale Pain Intensity 0 - Physical Exam General Appearance: no apparent distress, alert, anxiety Eye Exam: PERRL/EOMI, eyes nml inspection Ears, Nose, Throat Exam: hearing decreased (Chronically hard of hearing) Neck Exam: normal inspection, non-tender, supple, full range of motion Respiratory Exam: respiratory distress, diminished breath sounds, wheezing, No chest tenderness Cardiovascular/Chest Exam: tachycardia Abdominal/Gastrointestinal Exam: soft, normal bowel sounds, No tenderness Rectal Exam: not done Extremity Exam: non-tender, normal range of motion, normal inspection, no calf tenderness, no pedal edema, pelvis stable Neurologic Exam: alert, oriented x 3, cooperative, lathe tender II-XII nml as tested, other (Anxious) Skin Exam: normal color, warm, dry Lymphatic Exam: No adenopathy SpO2 Interpretation: hypoxic (On 3 L) SpO2: 96 (This value is on 5 L oxygen via nasal cannula) O2 Delivery: Nasal Cannula - Course Nursing assessment & vital signs reviewed: Yes EKG Interpreted by Me: RATE (117), Sinus Tach, NORMAL AXIS, LAFB, Non-specific ST Changes (Lateral leads), Other (No acute ischemic changes on today's twelve- lead EKG.) Ordered Tests: Active Orders 24 hr Category Date Time Status EKG-ER Only STAT Care 09/15/23 04:14 Active IV Insertion STAT Care 09/15/23 04:14 Active Pulse Oximetry (ED) STAT Care 09/15/23 04:14 Active CHEST 1 VIEW (PORTABLE) Stat Exams 09/15/23 04:15 Taken CHEST WITH CONTRAST [CT] Stat Exams 09/15/23 06:11 Ordered ABG [ARTERIAL BLOOD GASES] Stat Lab 09/15/23 05:45 Completed BLOOD CULTURE Stat Lab 09/15/23 04:35 Received CBC W DIFF Stat Lab 09/15/23 04:30 Completed CMP Stat Lab 09/15/23 04:30 Completed Lactic Acid Stat Lab 09/15/23 04:35 Completed MAGNESIUM Stat Lab 09/15/23 04:30 Completed NT PRO BNPII Stat Lab 09/15/23 04:30 Completed PROTIME WITH INR Stat Lab 09/15/23 04:30 Completed TROPONIN Q4H Lab 09/15/23 04:30 Completed TROPONIN Q4H Lab 09/15/23 08:15 Ordered TROPONIN Q4H Lab 09/15/23 12:15 Ordered BiPap/CPAP ROUTINE RT 09/15/23 06:24 Active Respiratory Therapy Assessment DAILY RT 09/15/23 04:15 Active Medication Summary Generic Name Dose Route Start Last Admin Trade Name Freq PRN Reason Stop Dose Admin Sodium Chloride 500 mls @ 50 mls/hr 09/15/23 06:15 Sodium Chloride 0.9% 500 Ml IV 10/15/23 06:14 .Q10H GIBRAN Discontinued Medications Generic Name Dose Route Start Last Admin Trade Name Freq PRN Reason Stop Dose Admin Albuterol/Ipratropium 3 ml 09/15/23 04:15 09/15/23 04:15 Ipratropium/Albuterol Sulfate 3 Ml Ampul.Neb IH 09/15/23 04:16 3 ml STAT ONE Administration Albuterol/Ipratropium Confirm 09/15/23 04:14 Ipratropium/Albuterol Sulfate 3 Ml Ampul.Neb Administered 09/15/23 04:15 Dose 3 ml IH .STK-MED ONE Methylprednisolone Sodium 0 mg 09/15/23 04:14 09/15/23 04:32 Succinate 125 mg/ Sterile IV 09/15/23 04:15 125 mg Water 2 ml STAT ONE Administration Methylprednisolone Sodium 0 mg 09/15/23 06:07 Succinate 80 mg/ Sterile Water IV 09/15/23 06:08 2 ml STAT ONE Furosemide Confirm 09/15/23 05:24 Furosemide 40 Mg/4 Ml Vial Administered 09/15/23 05:25 Dose 40 mg .ROUTE .STK-MED ONE Furosemide 40 mg 09/15/23 05:52 09/15/23 05:54 Furosemide 40 Mg/4 Ml Vial IV 09/15/23 05:53 40 mg STAT ONE Administration Ceftriaxone Sodium/Dextrose 1 g in 50 mls @ 100 mls/hr 09/15/23 05:02 09/15/23 05:18 Rocephin 1 Gm-D5w 50 Ml Bag IV 09/15/23 05:31 100 mls/hr STAT STA 100 mls/hr Administration Ceftriaxone Sodium/Dextrose Confirm 09/15/23 05:17 Rocephin 1 Gm-D5w 50 Ml Bag Administered 09/15/23 05:18 Dose 1 g in 50 mls @ ud IV .STK-MED ONE Methylprednisolone Sodium Succinate Confirm 09/15/23 04:28 Methylprednis Sod Succ 125 Mg/2 Ml Vial Administered 09/15/23 04:29 Dose 125 mg .ROUTE .STK-MED ONE Sterile Water Confirm 09/15/23 04:28 Water For Injection,Sterile 10 Ml Vial Administered 09/15/23 04:29 Dose 10 ml IJ .STK-MED ONE Lab/Rad Data: Laboratory Result Diagrams 09/15/23 04:30 09/15/23 04:30 Laboratory Results 09/15/23 09/15/23 09/15/23 Range/Units 05:45 04:35 04:30 WBC (4.0-10.5) x10^3/uL RBC (4.1-5.4) x10^6/uL Hgb (12.0-16.0) g/dL Hct (35-47) % MCV (78-100) fL MCH (26-32) pg MCHC (32-36) g/dL RDW (11.5-14.0) % Plt Count (150-450) x10^3/uL MPV (7.5-11.0) fL Gran % (36.0-66.0) % Immature Gran % (Auto) (0.00-0.4) % Nucleat RBC Rel Count (0.00-0.1) % Eos # (Auto) (0-0.5) x10^3/uL Immature Gran # (Auto) (0.00-0.03) x10^3u/L Absolute Lymphs (auto) (1.0-4.6) x10^3/uL Absolute Monos (auto) (0.0-1.3) x10^3/uL Absolute Nucleated RBC (0.00-0.01) x10^3u/L Lymphocytes % (24.0-44.0) % Monocytes % (0.0-12.0) % Eosinophils % (0.00-5.0) % Basophils % (0.0-0.4) % Absolute Granulocytes (1.4-6.9) x10^3/uL Basophils # (0-0.4) x10^3/uL PT (9.4-12.5) SECONDS INR (0.8-3.0) Puncture Site RIGHT RADIAL pCO2 90 H* (35-45) mmHg pO2 71 L (75-100) mmHg Base Excess 23.5 H (-2.0-2.0) O2 Saturation 91.5 L (94-100) g/dF ABG pH 7.39 (7.35-7.45) ABG HCO3 54.5 H* (22-28) ABG O2 Sat (Measured) 94.7 L (95-100) % Gustavo Test Yes A-a Gradient 173 a/A Ratio 0.29 Hemoglobin 14.4 Carboxyhemoglobin 2.5 (0.0-6.9) % THgb Methemoglobin 0.9 L (1.4-1.5) % Temperature 37.0 C POC O2 Flow Rate 50 % Sodium (137-145) mmol/L Potassium 3.6 (3.5-5.1) mmol/L Chloride (98-107) mmol/L Carbon Dioxide (22-30) mmol/L Anion Gap (5-15) MEQ/L BUN (7-17) mg/dL Creatinine (0.52-1.04) mg/dL Estimated GFR ML/MIN Glucose (74-106) mg/dL Lactic Acid 1.0 (0.4-2.0) Calcium (8.4-10.2) mg/dL Magnesium (1.6-2.3) mg/dL Total Bilirubin (0.2-1.3) mg/dL AST (14-36) U/L ALT (0-35) U/L Alkaline Phosphatase (38-126) U/L Troponin I (0.000-0.034) ng/mL NT-Pro-B Natriuret Pep (<300) pg/mL Serum Total Protein (6.3-8.2) g/dL Albumin (3.5-5.0) g/dL Influenza Type A Ag NEGATIVE (NEGATIVE) Influenza Type B Ag NEGATIVE (NEGATIVE) RSV (PCR) NEGATIVE (NEGATIVE) SARS-CoV-2 (PCR) NEGATIVE (NEGATIVE) 09/15/23 09/15/23 09/15/23 Range/Units 04:30 04:30 04:30 WBC (4.0-10.5) x10^3/uL RBC (4.1-5.4) x10^6/uL Hgb (12.0-16.0) g/dL Hct (35-47) % MCV (78-100) fL MCH (26-32) pg MCHC (32-36) g/dL RDW (11.5-14.0) % Plt Count (150-450) x10^3/uL MPV (7.5-11.0) fL Gran % (36.0-66.0) % Immature Gran % (Auto) (0.00-0.4) % Nucleat RBC Rel Count (0.00-0.1) % Eos # (Auto) (0-0.5) x10^3/uL Immature Gran # (Auto) (0.00-0.03) x10^3u/L Absolute Lymphs (auto) (1.0-4.6) x10^3/uL Absolute Monos (auto) (0.0-1.3) x10^3/uL Absolute Nucleated RBC (0.00-0.01) x10^3u/L Lymphocytes % (24.0-44.0) % Monocytes % (0.0-12.0) % Eosinophils % (0.00-5.0) % Basophils % (0.0-0.4) % Absolute Granulocytes (1.4-6.9) x10^3/uL Basophils # (0-0.4) x10^3/uL PT 11.2 (9.4-12.5) SECONDS INR 1.03 (0.8-3.0) Puncture Site pCO2 (35-45) mmHg pO2 (75-100) mmHg Base Excess (-2.0-2.0) O2 Saturation (94-100) g/dF ABG pH (7.35-7.45) ABG HCO3 (22-28) ABG O2 Sat (Measured) (95-100) % Gustavo Test A-a Gradient a/A Ratio Hemoglobin Carboxyhemoglobin (0.0-6.9) % THgb Methemoglobin (1.4-1.5) % Temperature C POC O2 Flow Rate % Sodium (137-145) mmol/L Potassium (3.5-5.1) mmol/L Chloride (98-107) mmol/L Carbon Dioxide (22-30) mmol/L Anion Gap (5-15) MEQ/L BUN (7-17) mg/dL Creatinine (0.52-1.04) mg/dL Estimated GFR ML/MIN Glucose (74-106) mg/dL Lactic Acid (0.4-2.0) Calcium (8.4-10.2) mg/dL Magnesium (1.6-2.3) mg/dL Total Bilirubin (0.2-1.3) mg/dL AST (14-36) U/L ALT (0-35) U/L Alkaline Phosphatase (38-126) U/L Troponin I 0.130 H* (0.000-0.034) ng/mL NT-Pro-B Natriuret Pep 04661 (<300) pg/mL Serum Total Protein (6.3-8.2) g/dL Albumin (3.5-5.0) g/dL Influenza Type A Ag (NEGATIVE) Influenza Type B Ag (NEGATIVE) RSV (PCR) (NEGATIVE) SARS-CoV-2 (PCR) (NEGATIVE) 09/15/23 09/15/23 Range/Units 04:30 04:30 WBC 11.7 H (4.0-10.5) x10^3/uL RBC 4.36 (4.1-5.4) x10^6/uL Hgb 14.1 (12.0-16.0) g/dL Hct 44.8 (35-47) % MCV 102.8 H (78-100) fL MCH 32.3 H (26-32) pg MCHC 31.5 L (32-36) g/dL RDW 12.3 (11.5-14.0) % Plt Count 287 (150-450) x10^3/uL MPV 9.9 (7.5-11.0) fL Gran % 71.4 H (36.0-66.0) % Immature Gran % (Auto) 0.4 (0.00-0.4) % Nucleat RBC Rel Count 0.0 (0.00-0.1) % Eos # (Auto) 0 (0-0.5) x10^3/uL Immature Gran # (Auto) 0.05 H (0.00-0.03) x10^3u/L Absolute Lymphs (auto) 2.03 (1.0-4.6) x10^3/uL Absolute Monos (auto) 1.22 (0.0-1.3) x10^3/uL Absolute Nucleated RBC 0.00 (0.00-0.01) x10^3u/L Lymphocytes % 17.4 L (24.0-44.0) % Monocytes % 10.5 (0.0-12.0) % Eosinophils % 0.0 (0.00-5.0) % Basophils % 0.3 (0.0-0.4) % Absolute Granulocytes 8.33 H (1.4-6.9) x10^3/uL Basophils # 0.04 (0-0.4) x10^3/uL PT (9.4-12.5) SECONDS INR (0.8-3.0) Puncture Site pCO2 (35-45) mmHg pO2 (75-100) mmHg Base Excess (-2.0-2.0) O2 Saturation (94-100) g/dF ABG pH (7.35-7.45) ABG HCO3 (22-28) ABG O2 Sat (Measured) (95-100) % Gustavo Test A-a Gradient a/A Ratio Hemoglobin Carboxyhemoglobin (0.0-6.9) % THgb Methemoglobin (1.4-1.5) % Temperature C POC O2 Flow Rate % Sodium 138 (137-145) mmol/L Potassium 3.6 (3.5-5.1) mmol/L Chloride 88 L (98-107) mmol/L Carbon Dioxide 44 H (22-30) mmol/L Anion Gap 9.6 (5-15) MEQ/L BUN 47 H (7-17) mg/dL Creatinine 0.83 (0.52-1.04) mg/dL Estimated GFR 82.7 ML/MIN Glucose 107 H (74-106) mg/dL Lactic Acid (0.4-2.0) Calcium 10.0 (8.4-10.2) mg/dL Magnesium 1.8 (1.6-2.3) mg/dL Total Bilirubin 0.70 (0.2-1.3) mg/dL AST 49 H (14-36) U/L ALT 54 H (0-35) U/L Alkaline Phosphatase 108 (38-126) U/L Troponin I (0.000-0.034) ng/mL NT-Pro-B Natriuret Pep (<300) pg/mL Serum Total Protein 7.3 (6.3-8.2) g/dL Albumin 4.0 (3.5-5.0) g/dL Influenza Type A Ag (NEGATIVE) Influenza Type B Ag (NEGATIVE) RSV (PCR) (NEGATIVE) SARS-CoV-2 (PCR) (NEGATIVE) - Progress Progress: improved, re-examined Air Movement: poor Progress Note: 09/15/23 04:37 This patient's medical issue is 1 of moderate to high complexity. The level of complexity in the workup performed is based on review of the patient's past medical history, review the patient's medication list, review of the patient's drug allergy list, history present illness and physical findings on examination. Workup in this patient includes placement of intravenous line, respiratory therapy consultation and management of airway and nebulizer treatments, CBC, CMP, COVID swab, mono test, BNP, troponin level, chest x-ray, twelve-lead EKG. We will also provide the patient with Solu-Medrol 125 mg intravenously. 09/15/23 05:03 Chest x-ray was interpreted by me. When compared to chest x-ray dated 03/28/2021, there appears to be a new linear left mid to lower lung opacity. 09/15/23 06:21 The laboratory results were interpreted by me. Patient has an elevated BNP, elevated troponin level, leukocytosis with normal renal function. Blood gas was performed which shows a pCO2 of 90 a pH of 7.39 and a pO2 of 71. Clinically, the patient's O2 saturations dropped on the 4 L oxy mask down from 94 to 88%. Respiratory therapy and I were notified. My thoughts at that time is that maybe she has a mucous plug or possible pulmonary embolus. Patient then coughed and her oxygen saturations went back up to 94 to 96% on the 4 L oxy mask. In the light of the elevated pCO2, we will briefly place the patient on a BiPAP and recheck an arterial blood gas in 30 minutes. I do believe that her pCO2 is on average higher than normal range but I think 90 is too high and we will try to get her down to 60-65 range with the BiPAP and recheck the blood gas we also have ordered a CT scan of the chest with contrast. 09/15/23 06:25 09/15/23 06:[address] Box, the emergency physician on at [facility]. I reviewed the patient history, the patient presenting complaint, physical findings on examination, workup with results including labs and radiographic studies. I also told him that the CT scan of the chest with contrast was in progress. He accepts the patient in transfer. Blood Culture(s) Obtained: Yes Antibiotics given: Yes Counseled pt/family regarding: lab results, diagnosis, rad results Medical Desision Making - Diagnostic Testing Diagnostic test were ordered, analyzed, and reviewed by me: Yes Radiological Interpretation: Interpreted by me - Risk of complications The pt has a high risk of morbidity or mortality based on: Decision regarding hospitilization or escalation of hosp level of care - Departure Departure Disposition: Transfer Clinical Impression: Sinus tachycardia, Hypoxia, Shortness of breath, Elevated brain natriuretic peptide (BNP) level, Elevated troponin, Left pulmonary infiltrate on CXR, Leukocytosis Condition: Serious Critical Care Time: Yes Critical Care Time(excluding separately billable procedures): Critical 30-74 mins (60) Referrals: BITA MCKINNEY MD [Primary Care Provider] - Follow up/PCP as directed
[2023-09-15] MEDS ORDERED: DUONEB 0.5-3 MG/3 ml Neb IH ONE ×2 (04:14→04:15)
[2023-09-15] MEDS ORDERED: solu-MEDROL 125 MG, Sterile H2O 10 ml 2 ML IV ONE ×2 (04:14)
[2023-09-15] MEDS ORDERED: Sterile H2O 10 ml IJ ONE ×2 (04:28→06:34)
[2023-09-15] MEDS ORDERED: solu-MEDROL ONE ×3 (04:28→06:35)
[2023-09-15 04:54] LABS: Absolute Neutrophil Ct (ANC) 8.33 x10^3/uL (1.4-6.9); BASOPHIL % 0.3 % (0.0-0.4); Basophil (Absolute #) 0.04 x10^3/uL (0-0.4); Eosinophil (Absolute #) 0 x10^3/uL (0-0.5); Hematocrit 44.8 % (35-47); Hemoglobin 14.1 g/dL (12.0-16.0); IMMATURE GRAN # 0.05 x10^3u/L (0.00-0.03); IMMATURE GRAN % 0.4 % (0.00-0.4); Lymphocyte (Absolute #) 2.03 x10^3/uL (1.0-4.6); Lymphocytes % 17.4 % (24.0-44.0); Mean Cell Volume 102.8 fL (78-100); Mean Corpuscular Hemoglobin 32.3 pg (26-32); Mean Corpuscular Hgb Concent. 31.5 g/dL (32-36); Mean Platelet Volume 9.9 fL (7.5-11.0); Monocyte (Absolute #) 1.22 x10^3/uL (0.0-1.3); Monocytes % 10.5 % (0.0-12.0); Neutrophil % 71.4 % (36.0-66.0); Platelet Count 287 x10^3/uL (150-450); Red Blood Count 4.36 x10^6/uL (4.1-5.4); Red Cell Distribution Width 12.3 % (11.5-14.0); White Blood Count 11.7 x10^3/uL (4.0-10.5)
[2023-09-15] MEDS ORDERED: ROCEPHIN 1 Gm-D5w 50 ml Bag** 1 G/50 ML IVPB IV STA (05:02)
[2023-09-15 05:06] LABS: INR 1.03 (0.8-3.0); PROTIME 11.2 SECONDS (9.4-12.5)
[2023-09-15 05:07] LABS: BILIRUBIN,TOTAL 0.7 mg/dL (0.2-1.3); Creatinine 1 0.83 mg/dL (0.52-1.04); EST GLOMERULAR FILTRATION RATE 82.7 ML/MIN; MAGNESIUM 1.8 mg/dL (1.6-2.3); Potassium 3.6 mmol/L (3.5-5.1); Total Protein 7.3 g/dL (6.3-8.2)
[2023-09-15 05:16] LABS: ANION GAP 9.6 MEQ/L (5-15)
[2023-09-15] MEDS ORDERED: ROCEPHIN 1 Gm-D5w 50 ml Bag** 1 G/50 ML IVPB IV ONE (05:17)
[2023-09-15] MEDS ORDERED: Lasix 40 MG/4 ML ONE (05:24)
[2023-09-15 05:32] LABS: INFLUENZA A NEGATIVE (NEGATIVE); INFLUENZA B NEGATIVE (NEGATIVE); RESPIRATORY SYNCTIAL VIRUS NEGATIVE (NEGATIVE); SARS-CoV-2 Xpert Express NEGATIVE (NEGATIVE)
[2023-09-15] MEDS ORDERED: Lasix 40 MG/4 ML IV ONE (05:52)
[2023-09-15 05:59] LABS: A-aADO2 173; ABG HEMOGLOBIN 14.4; ABG POTASSIUM 3.6 (3.5-5.1); ARTERIAL BLD GAS O2 SATURATION 94.7 % (95-100); ARTERIAL BLOOD GAS BASE EXCESS 23.5 (-2.0-2.0); ARTERIAL BLOOD GAS FIO2 50 %; ARTERIAL BLOOD GAS PO2 71 mmHg (75-100); ARTERIAL BLOOD GAS pH 7.39 (7.35-7.45); CARBOXYHEMOGLOBIN 2.5 % THgb (0.0-6.9); HCO3- 54.5 (22-28); HGB O2 SAT 91.5 g/dF (94-100); Methhemoglobin 0.9 % (1.4-1.5); paO2 pAO1 0.29
[2023-09-15 06:00] LABS: ABG SITE RIGHT RADIAL; ALLEN TEST OK? Yes; ARTERIAL BLOOD GAS PCO2 90 mmHg (35-45)
[2023-09-15] MEDS ORDERED: solu-MEDROL 80 MG, Sterile H2O 10 ml 2 ML IV ONE ×2 (06:07)
[2023-09-15] MEDS ORDERED: Sodium Chloride 0.9% 500 ML 500 ML IV SCH (06:15)
[2023-09-15 06:17] VITALS: O2SAT 96
[2023-09-15] MEDS ORDERED: solu-MEDROL 80 MG, Sterile H2O 10 ml 1 ML IV STA ×2 (06:36)
[2023-09-15] MEDS ORDERED: Sodium Chloride 0.9% 500 ML 500 ML IV ONE (06:37)
[2023-09-15 07:22] VITALS: BP 142/92; PULSE 118; RESP 34
--- NOTE | 2023-09-15 07:55 | XRAY ---
Indication: Short of breath. Comparison: January 26, 2023 Portable chest unchanged again demonstrating COPD and medial right base calcified granuloma. Heart not enlarged. Bony thorax intact again with osteopenia and mild degenerative changes. No new/acute findings.
--- NOTE | 2023-09-15 08:36 | XRAY ---
CLINICAL HISTORY:Hypoxia; tachycardia COMPARISON:02/07/2023. TECHNIQUE:Contiguous 3.[address] images of the chest were acquired with the administration of intravenous contrast. Coronal and sagittal reconstructions were obtained and submitted for diagnostic interpretation. FINDINGS: No evidence of a filling defect was seen in the pulmonary trunk or either pulmonary artery to suggest pulmonary embolism. The pulmonary trunk measures 2.3 cm and the aorta measures 3.1 cm. Both lungs show bilateral peripheral tree-in-bud nodules which progressed since the last study and are more appreciated on the right side. Diffusely calcified 1.1 x 0.8 cm nodule seen in right lower lobe likely benign. Multiple tiny less than 3 mm nodules are seen scattered in both lungs, a few of them are diffusely calcified. Mild centriacinar emphysematous changes were seen bilaterally No free or encysted pleural effusion. Heart size is normal, and there is no pericardial effusion. No pathologically enlarged mediastinal, hilar or axillary lymph node was identified. There is no definite mass lesion in the chest wall. The scanned upper abdomen is unremarkable. Mild degenerative changes are seen in the visualized spine. IMPRESSION: 1. No evidence of a filling defect was seen in the pulmonary trunk or either pulmonary artery to suggest pulmonary embolism. 2. Progressive course of tree-in-bud nodules more appreciated at the right lung and signify infection (TB should be considdered). Clinical correlation and follow-up are advised. 3. Mild bilateral centriacinar emphysematous changes. 4. Bilateral calcified pulmonary nodules most likely old granuloma. Electronically Signed by: Vishal Fregoso MD. (09/15/2023 08:32:01 EST)
== END 2023-09-15 07:51 | disposition short-term general hospital (02) ==
LOC: ED 03:45
DX: R00.0 Tachycardia, unspecified (principal); R09.02 Hypoxemia; R06.02 Shortness of breath; R79.89 Other specified abnormal findings of blood chemistry; R91.8 Other nonspecific abnormal finding of lung field; D72.829 Elevated white blood cell count, unspecified; I11.0 Hypertensive heart disease with heart failure; I50.9 Heart failure, unspecified; R51.9 Headache, unspecified; M79.10 Myalgia, unspecified site; R53.83 Other fatigue; E78.5 Hyperlipidemia, unspecified; Z79.899 Other long term (current) drug therapy; Z28.310 Unvaccinated for COVID-19; Z72.0 Tobacco use; Z99.81 Dependence on supplemental oxygen; Z20.828 Contact with and (suspected) exposure to other viral communicable diseases
CPT/HCPCS: 0241U; 36000; 36415; 36600; 71045; 71260; 80053; 82375; 82803; 83605; 83735; 83880; 84484; 85025; 85610; 87040; 93005; 94002; 94640; 94760; 96374; 96375; 96376; 99285; 99291; J0696; J1940; J2920; J2930; A9270-GY